=== PATIENT | female | born 1995 | race Caucasian/White ===

== ENCOUNTER 2016-10-02 16:48 | Inpatient (IN) | payer BC, MEDICAID ==
--- NOTE | 2016-10-02 17:23 | ED ---
General Adult HPI - General Chief complaint: Psychiatric Symptoms Stated complaint: Mental Health Time Seen by Provider: 10/02/16 17:10 Source: patient, RN notes reviewed Mode of arrival: ambulatory Limitations: no limitations - History of Present Illness Initial comments: Patient is a pleasant 21-year-old female presenting to the emergency Department with depression. Patient states she tried to overdose on plane Benadryl last night. Patient is unclear how many but believe she took somewhere between 5 and 20. Patient states The bottle still left. Patient is confident it was only Benadryl and no other medication was involved. No alcohol or street drug use. No homicidal thoughts. No hallucinations. No physical complaints. No history of previous suicide attempt. Patient has multiple stressors at this time. - Related Data Home Medications Medication Instructions Recorded Confirmed No Known Home Medications [No 08/08/15 10/02/16 Known Home Medications] Allergies Allergy/AdvReac Type Severity Reaction Status Date / Time sulfamethoxazole Allergy Rash/Hives Verified 10/02/16 17:52 [From Bactrim] trimethoprim [From Bactrim] Allergy Rash/Hives Verified 10/02/16 17:52 Review of Systems ROS Statement: Those systems with pertinent positive or pertinent negative responses have been documented in the HPI. ROS Other: All systems not noted in ROS Statement are negative. Constitutional: Denies: fever Eyes: Denies: eye pain ENT: Denies: ear pain Respiratory: Denies: cough Cardiovascular: Denies: chest pain Endocrine: Denies: fatigue Gastrointestinal: Denies: abdominal pain Genitourinary: Denies: dysuria Musculoskeletal: Denies: back pain Skin: Denies: rash Neurological: Denies: weakness Psychiatric: Reports: depression, suicidal thoughts. Denies: auditory hallucinations, visual hallucinations, homicidal thoughts Past Medical History Past Medical History: Diabetes Mellitus Additional Past Medical History / Comment(s): KIDNEY STONES, UTI'S History of Any Multi-Drug Resistant Organisms: MRSA Date of last positivie culture/infection: 2012 MDRO Source:: BUTTOCK/BREAST Past Surgical History: Cholecystectomy Past Anesthesia/Blood Transfusion Reactions: No Reported Reaction Past Psychological History: ADD/ADHD, Depression Smoking Status: Current every day smoker Past Alcohol Use History: Occasional Past Drug Use History: Marijuana - Past Family History Father Family Medical History: No Reported History General Exam Limitations: no limitations General appearance: alert, in no apparent distress Head exam: Present: atraumatic Eye exam: Present: normal appearance, PERRL ENT exam: Present: normal oropharynx Neck exam: Present: normal inspection Respiratory exam: Present: normal lung sounds bilaterally Cardiovascular Exam: Present: regular rate, normal rhythm GI/Abdominal exam: Present: soft. Absent: tenderness Extremities exam: Present: normal inspection Neurological exam: Present: alert Psychiatric exam: Present: depressed Skin exam: Present: normal color Course Vital Signs 10/02/16 10/02/16 16:51 18:42 Temperature 98.3 F 98.9 F Pulse Rate 70 88 Respiratory 20 16 Rate Blood Pressure 119/77 100/65 O2 Sat by Pulse 100 100 Oximetry Medical Decision Making - Medical Decision Making Patient was seen by mental health services, who will admit. - Lab Data Lab Results 10/02/16 Range/Units 17:25 Urine Opiates Screen Detected H (NotDetected) Ur Oxycodone Screen Not Detected (NotDetected) Urine Methadone Screen Not Detected (NotDetected) Ur Propoxyphene Screen Not Detected (NotDetected) Ur Barbiturates Screen Not Detected (NotDetected) U Tricyclic Antidepress Not Detected (NotDetected) Ur Phencyclidine Scrn Not Detected (NotDetected) Ur Amphetamines Screen Not Detected (NotDetected) U Methamphetamines Scrn Not Detected (NotDetected) U Benzodiazepines Scrn Not Detected (NotDetected) Urine Cocaine Screen Not Detected (NotDetected) U Marijuana (THC) Screen Not Detected (NotDetected) Disposition Clinical Impression: Depression, Suicidal ideation Disposition: TRANSFER TO PSYCH HOSP/UNIT Referrals: Lazaro Rainey MD [Primary Care Provider] - 1-2 days Decision Time: 21:36
[2016-10-02] MEDS ORDERED: MAGNESIUM HYDROXIDE 2,400 MG/10 ML CUP PO PRN (22:51)
[2016-10-02] MEDS ORDERED: ACETAMINOPHEN TAB 325 MG TAB PO PRN (22:51)
[2016-10-02] MEDS ORDERED: MAG HYDROX/AL HYDROX/SIMETH 30 ML CUP PO PRN (22:51)
[2016-10-02] MEDS ORDERED: LORazepam 0.5 MG TAB PO PRN (22:51)
[2016-10-02 23:14] VITALS: RESP 16
[2016-10-03 07:12] VITALS: BP 110/64; PULSE 77; TEMP 97.7
[2016-10-03 08:41] LABS: Basophils % (A) 0 %; CH 29.8; CHCM 34.5; Eosinophils # (A) 0.3 k/uL (0-0.7); Eosinophils % (A) 3 %; HCT 43.7 % (34.0-46.0); HDW 2.78; Luc # (Auto) 0.13; Luc % (Auto) 1; Lymphocytes # (A) 2.7 k/uL (1.0-4.8); Lymphocytes % (A) 26 %; MCH 29.8 pg (25.0-35.0); MCHC 34.2 g/dL (31.0-37.0); MCV 86.9 fL (80.0-100.0); Mean Platelet Volume 6.8; Monocytes # (A) 0.5 k/uL (0-1.0); Monocytes % (A) 5 %; Neutrophils # (A) 6.7 k/uL (1.3-7.7); Neutrophils % (A) 65 %; RBC 5.03 m/uL (3.80-5.40); RDW 13.1 % (11.5-15.5); WBC 10.3 k/uL (3.8-10.6); WBC (Perox) 10.92
[2016-10-03 09:59] LABS: ALT 43 U/L (9-52); AST 21 U/L (14-36); Alkaline Phosphatase 66 U/L (38-126); Anion Gap 15 mmol/L; Blood Urea Nitrogen 8 mg/dL (7-17); Carbon Dioxide 22 mmol/L (22-30); Chloride 109 mmol/L (98-107); Glucose 119 mg/dL (74-99); Non-African American GFR(MDRD) >60 (>60 ml/min/1.73 sqM); Potassium 4.3 mmol/L (3.5-5.1); Sodium 146 mmol/L (137-145); Total Bilirubin 0.5 mg/dL (0.2-1.3); Total Protein 7.9 g/dL (6.3-8.2)
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
--- NOTE | 2016-10-03 14:21 | P.DS ---
Providers Date of admission: 10/02/16 22:22 Expected date of discharge: 10/03/16 Attending physician: Chasidy Mg MD Consults: 10/02/16 22:53 Consult Physician Routine Consulting Provider: Deshawn Gonzalez Reason/Comments: Medical Management Do you want consulting provider notified?: Yes Primary care physician: Lazaro Rainey [facility] Course: Discharge Diagnoses: Adjustment disorder with depressed mood Suicide attempt with Benadryl overdose Reason for Admission: Patient is a 21-year-old female who was admitted after taking an overdose of Benadryl on the day prior to admission due to becoming angry with a recent breakup with her boyfriend due to his dating her best friend. She discovered that he was dating her best friend the day prior to her overdose attempt. Patient told her mother what had occurred and she was brought to the emergency room and admitted. Hospital Course: Patient was admitted and placed on precautions, she is scheduled for group and activity therapy and had routine laboratory examination. Patient was not begun on any medications and was attending groups. She stated that her overdose attempt was stupid due to the fact that she has a 2-year-old daughter to care for and stated that she really didn't want to was upset and angry about her boyfriend dating her best friend. She reported that she is sleeping and eating well and was not able to endorse any current depressive symptomatology, psychotic symptomatology and also denied any current suicidal ideation. Patient was encouraged to return to outpatient counseling and she was agreeable with this and was eager for discharge today. Discharge Mental Status:Appearance/Attitude: Patient was neatly and appropriately dressed and she was cooperative during the interview. Behavior: She exhibited no psychomotor retardation or agitation. Speech/Language: She was spontaneous and of normal volume and rhythm and was coherent. Thought Process: Patient was goal-directed and there is no evidence of any circumstantial or tangential thought. Thought Content: Patient denied any auditory or visual hallucinations and no delusions or paranoid ideation were elicited. Patient remained angry and upset that her boyfriend cheated on her, has done so in the past and that she has gotten back together with him in the past after these episodes and separation. Suicidal/Homicidal Ideation: Denies any current suicidal or homicidal ideation and states that she wants to live to care for PCD-8-uiup-old daughter. Sensorium/Cognition: Is alert and oriented to person, place, and time and her memory was grossly intact. Mood/Affect: Patient's mood was euthymic and her affect is appropriate. Insight/Judgement: Patient's judgment and insight are intact. Laboratory Last Values WBC 10.3 k/uL (3.8-10.6) 10/03/16 08:19 RBC 5.03 m/uL (3.80-5.40) 10/03/16 08:19 Hgb 15.0 gm/dL (11.4-16.0) 10/03/16 08:19 Hct 43.7 % (34.0-46.0) 10/03/16 08:19 MCV 86.9 fL (80.0-100.0) 10/03/16 08:19 MCH 29.8 pg (25.0-35.0) 10/03/16 08:19 MCHC 34.2 g/dL (31.0-37.0) 10/03/16 08:19 RDW 13.1 % (11.5-15.5) 10/03/16 08:19 Plt Count 315 k/uL (150-450) 10/03/16 08:19 Neutrophils % 65 % 10/03/16 08:19 Lymphocytes % 26 % 10/03/16 08:19 Monocytes % 5 % 10/03/16 08:19 Eosinophils % 3 % 10/03/16 08:19 Basophils % 0 % 10/03/16 08:19 Neutrophils # 6.7 k/uL (1.3-7.7) 10/03/16 08:19 Lymphocytes # 2.7 k/uL (1.0-4.8) 10/03/16 08:19 Monocytes # 0.5 k/uL (0-1.0) 10/03/16 08:19 Eosinophils # 0.3 k/uL (0-0.7) 10/03/16 08:19 Basophils # 0.0 k/uL (0-0.2) 10/03/16 08:19 Sodium 146 mmol/L (137-145) H 10/03/16 08:19 Potassium 4.3 mmol/L (3.5-5.1) 10/03/16 08:19 Chloride 109 mmol/L (98-107) H 10/03/16 08:19 Carbon Dioxide 22 mmol/L (22-30) 10/03/16 08:19 Anion Gap 15 mmol/L 10/03/16 08:19 BUN 8 mg/dL (7-17) 10/03/16 08:19 Creatinine 0.60 mg/dL (0.52-1.04) 10/03/16 08:19 Est GFR (MDRD) Af Amer >60 (>60 ml/min/1.73 sqM) 10/03/16 08:19 Est GFR (MDRD) Non-Af >60 (>60 ml/min/1.73 sqM) 10/03/16 08:19 Glucose 119 mg/dL (74-99) H 10/03/16 08:19 Calcium 10.0 mg/dL (8.4-10.2) 10/03/16 08:19 Total Bilirubin 0.5 mg/dL (0.2-1.3) 10/03/16 08:19 AST 21 U/L (14-36) 10/03/16 08:19 ALT 43 U/L (9-52) 10/03/16 08:19 Alkaline Phosphatase 66 U/L (38-126) 10/03/16 08:19 Total Protein 7.9 g/dL (6.3-8.2) 10/03/16 08:19 Albumin 5.1 g/dL (3.5-5.0) H 10/03/16 08:19 TSH 1.550 mIU/L (0.465-4.680) 10/03/16 08:19 Urine HCG, Qual Not Detected (Not Detectd) 10/02/16 17:25 Urine Opiates Screen Detected (NotDetected) H 10/02/16 17:25 Ur Oxycodone Screen Not Detected (NotDetected) 10/02/16 17:25 Urine Methadone Screen Not Detected (NotDetected) 10/02/16 17:25 Ur Propoxyphene Screen Not Detected (NotDetected) 10/02/16 17:25 Ur Barbiturates Screen Not Detected (NotDetected) 10/02/16 17:25 U Tricyclic Antidepress Not Detected (NotDetected) 10/02/16 17:25 Ur Phencyclidine Scrn Not Detected (NotDetected) 10/02/16 17:25 Ur Amphetamines Screen Not Detected (NotDetected) 10/02/16 17:25 U Methamphetamines Scrn Not Detected (NotDetected) 10/02/16 17:25 U Benzodiazepines Scrn Not Detected (NotDetected) 10/02/16 17:25 Urine Cocaine Screen Not Detected (NotDetected) 10/02/16 17:25 U Marijuana (THC) Screen Not Detected (NotDetected) 10/02/16 17:25 Allergies sulfamethoxazole [From Bactrim] Allergy (Verified 10/02/16 23:17) Rash/Hives NAUSEA/VOMITING trimethoprim [From Bactrim] Allergy (Verified 10/02/16 23:17) Rash/Hives NAUSEA/VOMITING mosquitos Allergy (Uncoded 10/02/16 23:18) Rash/Hives Risk Assessment: Patient's risk for suicidal behavior in the future is low, she has a supportive family, is willing to enter counseling and is engaged with HER- 2-year-old daughter. Discharge Plan: Patient will be discharged to return to live with her mother and stepfather and her 2-year-old daughter, she was not given any psychotropic medication on discharge nor during admission. Patient will return to work at the [employer]. She was encouraged to consider smoking cessation. She will follow up in outpatient counseling. 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 Patient Condition at Discharge: Stable Plan - Discharge Summary New Discharge Prescriptions: No Action No Known Home Medications [No Known Home Medications] Discharge Medication List No Known Home Medications [No Known Home Medications] 08/08/15 [History] Follow up Appointment(s)/Referral(s): Jatinder Carrasco [Outside] - 10/06/16 9:00 am ([facility] (subject to change ) facility will notify ) Lazaro Rainey MD [Primary Care Provider] - 1-2 days Activity/Diet/Wound Care/Special Instructions: Patient to schedule appointment with [facility] to restart Control Discharge Disposition: HOME SELF-CARE
--- NOTE | 2016-10-04 10:30 | P.MDCNMH ---
History of Present Illness H&P Date: 10/03/16 Chief Complaint: Medical management This is a 21-year-old female patient of Dr. Rainey with past medical history of diabetes mellitus on diet control, kidney stones, urinary tract infections, ADHD, depression, tobacco use and dependence. Patient states that she had her boyfriend and broken up and she was depressed and taking Benadryl 10 -15 tablets 4 days ago. She came into [facility] emergency [facility]. Opiates were found in her drug screen she denies any use of opiates. Patient has been admitted to the mental health unit and has been seen by psychiatrist with plan to set up outpatient counselor. Patient denies any medical concerns at this time and she also denies having any suicidal thoughts at this time. Review of Systems All systems: negative Constitutional: Denies chills, Denies fever Eyes: denies blurred vision, denies pain Ears, nose, mouth and throat: Denies headache, Denies sore throat Cardiovascular: Denies chest pain, Denies shortness of breath Respiratory: Denies cough Gastrointestinal: Denies abdominal pain, Denies diarrhea, Denies nausea, Denies vomiting Genitourinary: Denies dysuria, Denies hematuria Musculoskeletal: Denies myalgias Integumentary: Denies pruritus, Denies rash Neurological: Denies numbness, Denies weakness Psychiatric: Denies anxiety, Denies depression Endocrine: Denies fatigue, Denies weight change Past Medical History Past Medical History: Diabetes Mellitus Additional Past Medical History / Comment(s): KIDNEY STONES, UTI'S History of Any Multi-Drug Resistant Organisms: MRSA Date of last positivie culture/infection: 2012 MDRO Source:: BUTTOCK/BREAST Past Surgical History: Cholecystectomy, Hernia Repair Additional Past Surgical History / Comment(s): Left inguinal hernia repair Past Anesthesia/Blood Transfusion Reactions: No Reported Reaction Past Psychological History: ADD/ADHD, Depression Smoking Status: Current every day smoker Past Alcohol Use History: Occasional Additional Past Alcohol Use History / Comment(s): Patient is a smoker of one pack per day since she was 15 years of age. She states she drinks alcohol occasionally. She has used marijuana in the past but denies any use at this time. Past Drug Use History: Marijuana - Past Family History Father Family Medical History: No Reported History Additional Family Medical History / Comment(s): Father is alive at age 46 with history of celiac disease Mother Additional Family Medical History / Comment(s): Mother is alive at age 41 with no major medical problems. Patient has 2 half-brothers and one half-sister with no major medical problems. Medications and Allergies Home Medications Medication Instructions Recorded Confirmed Type No Known Home Medications [No 08/08/15 10/02/16 History Known Home Medications] Allergies Allergy/AdvReac Type Severity Reaction Status Date / Time sulfamethoxazole Allergy Rash/Hives Verified 10/02/16 23:17 [From Bactrim] trimethoprim [From Bactrim] Allergy Rash/Hives Verified 10/02/16 23:17 mosquitos Allergy Rash/Hives Uncoded 10/02/16 23:18 Physical Exam Vitals: Vital Signs Temp Pulse Pulse Resp BP BP Pulse Ox 10/03/16 07:11 97.7 F 77 16 110/64 10/02/16 23:13 98.5 F 71 16 115/66 99 10/02/16 22:42 98 F 87 20 110/68 98 10/02/16 18:42 98.9 F 88 16 100/65 100 10/02/16 16:51 98.3 F 70 20 119/77 100 Intake and Output 10/02/16 10/03/16 10/03/16 22:59 06:59 14:59 Other: Weight 81.647 kg 82.1 kg Gen: This is a 21-year-old female. She is very cooperative, appropriate and appears to be in no acute distress. HEENT: Head is atraumatic, normocephalic. Pupils equal, round. Sclerae is anicteric. NECK: Supple. No JVD. No lymphadenopathy. No thyromegaly. LUNGS: Clear to auscultation. No wheezes or rhonchi. No intercostal retractions. HEART: Regular rate and rhythm. No murmur. ABDOMEN: Soft. Bowel sounds are present. No masses. No tenderness. EXTREMITIES: No pedal edema. No calf tenderness. NEUROLOGICAL: Patient is awake, alert and oriented x3. Cranial nerves 2 through 12 are grossly intact. Cranial Nerve Examination - Cranial Nerves Cranial Nerve II- Optic: Intact Cranial Nerve III- Oculomotor: Intact Cranial Nerve IV- Trochlear: Intact Cranial Nerve V- Trigeminal: Intact Cranial Nerve - Abducens: Intact Cranial Nerve VII- Facial: Intact Cranial Nerve VIII- Auditory: Intact Cranial Nerve IX- Glossopharyngeal: Intact Cranial Nerve X- Vagus: Intact Cranial Nerve XI- Accessory: Intact Cranial Nerve XII- Hypoglossal: Intact Results CBC & Chem 7: 10/03/16 08:19 10/03/16 08:19 Labs: Abnormal Lab Results - Last 24 Hours (Table) 10/02/16 10/03/16 Range/Units 17:25 08:19 Sodium 146 H (137-145) mmol/L Chloride 109 H (98-107) mmol/L Glucose 119 H (74-99) mg/dL Albumin 5.1 H (3.5-5.0) g/dL Urine Opiates Screen Detected H (NotDetected) Assessment and Plan Plan: 1. Depression recurrent. Patient admitted to the mental health unit. Continue current plan per psychiatrist. 2. Tobacco use and dependence. Continue nicotine patch. 3. History of kidney stones and urinary tract infections, stable. 4. History of diabetes but not on medication, stable. Impression and plan of care have been directed as dictated by the signing physician. Lolly Curtis nurse practitioner acting as scribe for signing physician.
== END 2016-10-03 16:44 | disposition home or self-care (01) | DRG 881 ==
LOC: EC 16:48 → 3MHU 22:22
PROVIDERS: ADMIT Psychiatry & Neurology Psychiatry; ATTEND Psychiatry & Neurology Psychiatry
DX: F43.21 Adjustment disorder with depressed mood (principal); E11.9 Type 2 diabetes mellitus without complications; F31.9 Bipolar disorder, unspecified; T45.0X2A Poisoning by antiallergic and antiemetic drugs, intentional self-harm, initial encounter; F17.200 Nicotine dependence, unspecified, uncomplicated; F90.9 Attention-deficit hyperactivity disorder, unspecified type; Z87.442 Personal history of urinary calculi; Z87.440 Personal history of urinary (tract) infections; Z90.49 Acquired absence of other specified parts of digestive tract; Z88.1 Allergy status to other antibiotic agents; Z88.2 Allergy status to sulfonamides; Y92.009 Unspecified place in unspecified non-institutional (private) residence as the place of occurrence of the external cause
CPT/HCPCS: 80053; 80306; 81025; 82075; 84443; 85025; 99285

== ENCOUNTER 2017-01-07 04:24 | Emergency (ER) | payer BC, OTHER ==
[2017-01-07 04:31] VITALS: BP 145/83; PULSE 84; RESP 16; TEMP 98.6
[2017-01-07] MEDS ORDERED: predniSONE 50 MG TAB PO STA (04:54)
--- NOTE | 2017-01-07 04:54 | ED ---
Skin/Abscess/FB HPI - General Chief complaint: Skin/Abscess/Foreign Body Stated complaint: Rash Time Seen by Provider: 01/07/17 04:34 Source: patient Mode of arrival: ambulatory Limitations: no limitations - History of Present Illness Initial comments: This patient is 21-year-old woman who presents to be evaluated for a rash. She states that 2 days ago she noticed fine bumps on her bilateral feet and hands. She states that over the following day the increase in number and were itching. She states that she has been scratching. She has taken Benadryl which helped a little bit with the itching. She denies any associated symptoms. No fever or chills, no upper respiratory symptoms. She has not noticed any mucous membrane involvement. MD complaint: rash Onset/Timin -: days(s) Tetanus Up to Date: yes Location: L hand, R hand, LLE, RLE Severity: moderate Quality: other (Itching) Consistency: constant Improves with: none Worsens with: none Context: none Associated symptoms: denies other symptoms Treatments Prior to Arrival: Benadryl - Related Data Previous Rx's Medication Instructions Recorded Triamcinolone 0.5% Cream [Kenalog 1 applic TOPICAL TID #15 gm 01/07/17 0.5% Cream] Allergies Allergy/AdvReac Type Severity Reaction Status Date / Time sulfamethoxazole Allergy Rash/Hives Verified 01/07/17 04:31 [From Bactrim] trimethoprim [From Bactrim] Allergy Rash/Hives Verified 01/07/17 04:31 mosquitos Allergy Rash/Hives Uncoded 01/07/17 04:31 Review of Systems ROS Statement: Those systems with pertinent positive or pertinent negative responses have been documented in the HPI. ROS Other: All systems not noted in ROS Statement are negative. Constitutional: Denies: fever, chills Eyes: Denies: eye pain, eye discharge ENT: Denies: throat pain, congestion Respiratory: Denies: cough Gastrointestinal: Denies: abdominal pain, nausea, vomiting Skin: Reports: rash Neurological: Denies: headache Past Medical History Past Medical History: Diabetes Mellitus Additional Past Medical History / Comment(s): KIDNEY STONES, UTI'S History of Any Multi-Drug Resistant Organisms: MRSA Date of last positivie culture/infection: 2012 MDRO Source:: BUTTOCK/BREAST Past Surgical History: Cholecystectomy, Hernia Repair Additional Past Surgical History / Comment(s): Left inguinal hernia repair Past Anesthesia/Blood Transfusion Reactions: No Reported Reaction Past Psychological History: ADD/ADHD, Depression Smoking Status: Current every day smoker Past Alcohol Use History: Occasional Past Drug Use History: Marijuana - Past Family History Mother Additional Family Medical History / Comment(s): Mother is alive at age 41 with no major medical problems. Patient has 2 half-brothers and one half-sister with no major medical problems. Father Family Medical History: No Reported History Additional Family Medical History / Comment(s): Father is alive at age 46 with history of celiac disease General Exam Limitations: no limitations General appearance: alert, in no apparent distress Head exam: Present: atraumatic, normocephalic Eye exam: Present: normal appearance. Absent: scleral icterus, conjunctival injection ENT exam: Present: normal oropharynx, mucous membranes moist Respiratory exam: Present: normal lung sounds bilaterally. Absent: respiratory distress, wheezes, rales, rhonchi, stridor Cardiovascular Exam: Present: regular rate, normal rhythm, normal heart sounds. Absent: systolic murmur, diastolic murmur, rubs, gallop Skin exam: Present: warm, dry, intact, normal color, rash (There is a papular rash involving the dorsum of the hands and the wrists bilaterally. There is more involvement of the dorsum of the feet and the ankles bilaterally. There are also some excoriations. The rash is consistent with a contact dermatitis. No petechial or purpura oral lesions.). Absent: erythema, urticaria, vesicles, petechiae, pallor, mottled Course Vital Signs 01/07/17 04:25 Temperature 98.6 F Pulse Rate 84 Respiratory 16 Rate Blood Pressure 145/83 O2 Sat by Pulse 99 Oximetry Disposition Clinical Impression: Contact dermatitis Disposition: HOME SELF-CARE Condition: Good Instructions: Contact Dermatitis (ED) Prescriptions: Triamcinolone 0.5% Cream [Kenalog 0.5% Cream] 1 applic TOPICAL TID #15 gm Referrals: Lazaro Rainey MD [Primary Care Provider] - 1-2 days
== END 2017-01-07 05:03 | disposition home or self-care (01) ==
LOC: EC 04:24
DX: L25.9 Unspecified contact dermatitis, unspecified cause (principal); F17.200 Nicotine dependence, unspecified, uncomplicated; Z86.14 Personal history of Methicillin resistant Staphylococcus aureus infection; Z88.2 Allergy status to sulfonamides; Z91.09 Other allergy status, other than to drugs and biological substances
CPT/HCPCS: 99282 ×2; J7512

== ENCOUNTER 2017-10-07 01:15 | Emergency (ER) | payer BC, OTHER ==
[2017-10-07 01:24] VITALS: TEMP 97.2
[2017-10-07] MEDS ORDERED: SODIUM CHLORIDE 0.9% 1,000 ML IV STA (01:38)
--- NOTE | 2017-10-07 01:50 | ED ---
Abdominal Pain HPI - General Chief Complaint: Abdominal Pain Stated Complaint: abd pain Time Seen by Provider: 10/07/17 01:31 Source: patient, family, RN notes reviewed Mode of arrival: ambulatory Limitations: no limitations - History of Present Illness Initial Comments: 22-year-old female presents emergency Department chief complaint of abdominal pain, sore throat. Patient states that she's had some upper respiratory symptoms over the last few days states that she was seen at [facility] and was told she had an upper respiratory infection to take [id number] medications. She has been doing that but states that she still has a sore throat having acid is improved. She states it's very painful to swallow at times. Patient states she has no shortness breath minimal cough. Patient reports no known fever but states that she's had hot and cold flashes. Patient states that she did have abdominal pain when she was seen in the they told her that was nothing and discharge her. Patient states pain is worsened as her right lower quadrant. She's had a prior cholecystectomy and hernia repair. Patient states that she is not . Denies any dysuria or hematuria. - Related Data Previous Rx's Medication Instructions Recorded Amoxicillin/Potassium Clav 1 tab PO Q12HR #20 tab 10/07/17 [Augmentin 875-125 Tablet] Allergies Allergy/AdvReac Type Severity Reaction Status Date / Time sulfamethoxazole Allergy Rash/Hives Verified 10/07/17 01:24 [From Bactrim] trimethoprim [From Bactrim] Allergy Rash/Hives Verified 10/07/17 01:24 mosquitos Allergy Rash/Hives Uncoded 10/07/17 01:24 Review of Systems ROS Statement: Those systems with pertinent positive or pertinent negative responses have been documented in the HPI. ROS Other: All systems not noted in ROS Statement are negative. Past Medical History Past Medical History: Diabetes Mellitus Additional Past Medical History / Comment(s): KIDNEY STONES, UTI'S History of Any Multi-Drug Resistant Organisms: MRSA Date of last positivie culture/infection: 2012 MDRO Source:: BUTTOCK/BREAST Past Surgical History: Cholecystectomy, Hernia Repair Additional Past Surgical History / Comment(s): Left inguinal hernia repair Past Anesthesia/Blood Transfusion Reactions: No Reported Reaction Past Psychological History: ADD/ADHD, Depression Smoking Status: Current every day smoker Past Alcohol Use History: Occasional Past Drug Use History: Marijuana - Past Family History Mother Additional Family Medical History / Comment(s): Mother is alive at age 41 with no major medical problems. Patient has 2 half-brothers and one half-sister with no major medical problems. Father Family Medical History: No Reported History Additional Family Medical History / Comment(s): Father is alive at age 46 with history of celiac disease General Exam Limitations: no limitations General appearance: alert, in no apparent distress Eye exam: Present: normal appearance, PERRL, EOMI. Absent: scleral icterus, conjunctival injection, periorbital swelling ENT exam: Present: mucous membranes moist, TM's normal bilaterally, normal external ear exam. Absent: normal oropharynx (Mild erythema of the tonsillar region mild edema swan secretions well) Neck exam: Present: normal inspection, full ROM. Absent: tenderness, meningismus, lymphadenopathy Respiratory exam: Present: normal lung sounds bilaterally. Absent: respiratory distress, wheezes, rales, rhonchi, stridor Cardiovascular Exam: Present: regular rate, normal rhythm, normal heart sounds. Absent: systolic murmur, diastolic murmur, rubs, gallop, clicks GI/Abdominal exam: Present: soft, tenderness (Moderate right lower quadrant), normal bowel sounds. Absent: distended, guarding, rebound, rigid Back exam: Absent: CVA tenderness (R), CVA tenderness (L) Skin exam: Present: warm, dry, intact, normal color. Absent: rash Course Vital Signs 10/07/17 01:21 Temperature 97.2 F L Pulse Rate 87 Respiratory 20 Rate Blood Pressure 125/71 O2 Sat by Pulse 99 Oximetry Medical Decision Making - Medical Decision Making 22-year-old female presented from chief complaint of sore throat abdominal pain. Patient lab work CT does show normal appendix there is some free fluid possible concern for ovarian cyst rupture for pain. Patient we treated for acute pharyngitis rapid strep is negative though culture is pending. Patient was placed on Augmentin. Return parameters were discussed. - Lab Data Result diagrams: 10/07/17 01:55 10/07/17 01:55 Lab Results 10/07/17 10/07/17 10/07/17 Range/Units 01:55 01:55 01:55 WBC 10.7 H (3.8-10.6) k/uL RBC 5.09 (3.80-5.40) m/uL Hgb 14.8 (11.4-16.0) gm/dL Hct 43.3 (34.0-46.0) % MCV 85.1 (80.0-100.0) fL MCH 29.1 (25.0-35.0) pg MCHC 34.2 (31.0-37.0) g/dL RDW 13.3 (11.5-15.5) % Plt Count 276 (150-450) k/uL Neutrophils % 59 % Lymphocytes % 27 % Monocytes % 6 % Eosinophils % 5 % Basophils % 0 % Neutrophils # 6.3 (1.3-7.7) k/uL Lymphocytes # 2.9 (1.0-4.8) k/uL Monocytes # 0.7 (0-1.0) k/uL Eosinophils # 0.5 (0-0.7) k/uL Basophils # 0.0 (0-0.2) k/uL Sodium 143 (137-145) mmol/L Potassium 4.2 (3.5-5.1) mmol/L Chloride 107 (98-107) mmol/L Carbon Dioxide 23 (22-30) mmol/L Anion Gap 13 mmol/L BUN 9 (7-17) mg/dL Creatinine 0.50 L (0.52-1.04) mg/dL Est GFR (CKD-EPI)AfAm >90 (>60 ml/min/1.73 sqM) Est GFR (CKD-EPI)NonAf >90 (>60 ml/min/1.73 sqM) Glucose 112 H (74-99) mg/dL Calcium 10.1 (8.4-10.2) mg/dL Total Bilirubin 0.4 (0.2-1.3) mg/dL AST 40 H (14-36) U/L ALT 62 H (9-52) U/L Alkaline Phosphatase 50 (38-126) U/L Total Protein 7.6 (6.3-8.2) g/dL Albumin 4.7 (3.5-5.0) g/dL Amylase 45 (30-110) U/L Lipase 78 (23-300) U/L Urine Color Urine Appearance (Clear) Urine pH (5.0-8.0) Ur Specific [place] (1.001-1.035) Urine Protein (Negative) Urine Glucose (UA) (Negative) Urine Ketones (Negative) Urine Blood (Negative) Urine Nitrite (Negative) Urine Bilirubin (Negative) Urine Urobilinogen (<2.0) mg/dL Ur Leukocyte Esterase (Negative) Urine RBC (0-5) /hpf Urine WBC (0-5) /hpf Ur Squamous Epith Cells (0-4) /hpf Urine Mucus (None) /hpf Urine HCG, Qual Not Detected (Not Detectd) Heterophile Antibody (Negative) Group A Strep Rapid (Negative) 10/07/17 10/07/17 10/07/17 Range/Units 01:55 01:55 01:55 WBC (3.8-10.6) k/uL RBC (3.80-5.40) m/uL Hgb (11.4-16.0) gm/dL Hct (34.0-46.0) % MCV (80.0-100.0) fL MCH (25.0-35.0) pg MCHC (31.0-37.0) g/dL RDW (11.5-15.5) % Plt Count (150-450) k/uL Neutrophils % % Lymphocytes % % Monocytes % % Eosinophils % % Basophils % % Neutrophils # (1.3-7.7) k/uL Lymphocytes # (1.0-4.8) k/uL Monocytes # (0-1.0) k/uL Eosinophils # (0-0.7) k/uL Basophils # (0-0.2) k/uL Sodium (137-145) mmol/L Potassium (3.5-5.1) mmol/L Chloride (98-107) mmol/L Carbon Dioxide (22-30) mmol/L Anion Gap mmol/L BUN (7-17) mg/dL Creatinine (0.52-1.04) mg/dL Est GFR (CKD-EPI)AfAm (>60 ml/min/1.73 sqM) Est GFR (CKD-EPI)NonAf (>60 ml/min/1.73 sqM) Glucose (74-99) mg/dL Calcium (8.4-10.2) mg/dL Total Bilirubin (0.2-1.3) mg/dL AST (14-36) U/L ALT (9-52) U/L Alkaline Phosphatase (38-126) U/L Total Protein (6.3-8.2) g/dL Albumin (3.5-5.0) g/dL Amylase (30-110) U/L Lipase (23-300) U/L Urine Color Light Yellow Urine Appearance Cloudy H (Clear) Urine pH 7.0 (5.0-8.0) Ur Specific [place] 1.008 (1.001-1.035) Urine Protein Negative (Negative) Urine Glucose (UA) Negative (Negative) Urine Ketones Negative (Negative) Urine Blood Negative (Negative) Urine Nitrite Negative (Negative) Urine Bilirubin Negative (Negative) Urine Urobilinogen <2.0 (<2.0) mg/dL Ur Leukocyte Esterase Negative (Negative) Urine RBC <1 (0-5) /hpf Urine WBC 1 (0-5) /hpf Ur Squamous Epith Cells 10 H (0-4) /hpf Urine Mucus Rare H (None) /hpf Urine HCG, Qual (Not Detectd) Heterophile Antibody Negative (Negative) Group A Strep Rapid Negative (Negative) Disposition Clinical Impression: Acute pharyngitis, Abdominal pain Disposition: HOME SELF-CARE Condition: Stable Instructions: Abdominal Pain (ED) Additional Instructions: Please return to the Emergency Department if symptoms worsen or any other concerns. Prescriptions: Amoxicillin/Potassium Clav [Augmentin 875-125 Tablet] 1 tab PO Q12HR #20 tab Is patient prescribed a controlled substance at d/c from ED?: No Referrals: Lazaro Rainey MD [Primary Care Provider] - 1-2 days Time of Disposition: 03:05
[2017-10-07 02:09] LABS: Basophils % (A) 0 %; Eosinophils # (A) 0.5 k/uL (0-0.7); Eosinophils % (A) 5 %; HCT 43.3 % (34.0-46.0); HGB 14.8 gm/dL (11.4-16.0); Lymphocytes # (A) 2.9 k/uL (1.0-4.8); Lymphocytes % (A) 27 %; MCH 29.1 pg (25.0-35.0); MCHC 34.2 g/dL (31.0-37.0); MCV 85.1 fL (80.0-100.0); Mean Platelet Volume 7.1; Monocytes # (A) 0.7 k/uL (0-1.0); Monocytes % (A) 6 %; Neutrophils # (A) 6.3 k/uL (1.3-7.7); Neutrophils % (A) 59 %; Platelet Count 276 k/uL (150-450); RBC 5.09 m/uL (3.80-5.40); RDW 13.3 % (11.5-15.5); WBC 10.7 k/uL (3.8-10.6)
[2017-10-07 02:11] LABS: Appearance,Urine Cloudy (Clear); Bilirubin,Urine Negative (Negative); Blood,Urine Negative (Negative); Color,Urine Light Yellow; Glucose,Urine (UA) Negative (Negative); Ketones,Urine Negative (Negative); Leukocyte Esterase,Urine Negative (Negative); Mucus,Urine Rare /hpf; Nitrite,Urine Negative (Negative); Protein,Urine Negative (Negative); RBC,Urine <1 /hpf (0-5); Specific Gravity,Urine 1.008 (1.001-1.035); Squamous Epithelial Cell,Urine 10 /hpf (0-4); Urobilinogen,Urine <2.0 mg/dL (<2.0); WBC,Urine 1 /hpf (0-5)
[2017-10-07 02:22] LABS: ALT 62 U/L (9-52); AST 40 U/L (14-36); Albumin 4.7 g/dL (3.5-5.0); Alkaline Phosphatase 50 U/L (38-126); Amylase 45 U/L (30-110); Anion Gap 13 mmol/L; Blood Urea Nitrogen 9 mg/dL (7-17); Calcium 10.1 mg/dL (8.4-10.2); Carbon Dioxide 23 mmol/L (22-30); Chloride 107 mmol/L (98-107); Glucose 112 mg/dL (74-99); Lipase 78 U/L (23-300); Potassium 4.2 mmol/L (3.5-5.1); Sodium 143 mmol/L (137-145); Total Bilirubin 0.4 mg/dL (0.2-1.3); Total Protein 7.6 g/dL (6.3-8.2)
--- NOTE | 2017-10-07 02:50 | CT ---
EXAMINATION TYPE: CT abdomen pelvis w con DATE OF EXAM: 10/07/2017 COMPARISON: None HISTORY: RLQ abd pain CT DLP: 948.50 mGycm Automated exposure control for dose reduction was used. TECHNIQUE: Helical acquisition of images was performed from the lung bases through the pelvis. CONTRAST: Performed without Oral Contrast and with IV Contrast, patient injected with 100 mL of Isovue 300. FINDINGS: There is some groundglass interstitial infiltrate at the lung bases. Heart size is normal. There is n o pleural effusion. Liver spleen pancreas appear normal. Bile ducts are not dilated. There are clips from cholecystectomy. There is no adrenal mass. Kidneys show satisfactory contrast opacification. There is no hydronephrosi s. There is no retroperitoneal adenopathy. There is no ascites. Appendix appears normal. There is no intestinal wall thickening. There is small amount of free fluid in the cul-de-sac. Uterus is antevert ed. There is no pelvic mass. Bladder distends smoothly. There is no evidence of a bony destructive pr ocess. There is no sign of free air. There is no evidence of a bowel obstruction. IMPRESSION: NORMAL APPENDIX. NO RENAL STONE OR OBSTRUCTION. SMALL AMOUNT OF FREE FLUID IN THE CUL-DE-SAC.
[2017-10-07 03:48] VITALS: BP 122/56; PULSE 65; RESP 16
== END 2017-10-07 03:48 | disposition home or self-care (01) ==
LOC: EC 01:15
DX: J02.9 Acute pharyngitis, unspecified (principal); R10.31 Right lower quadrant pain; F17.200 Nicotine dependence, unspecified, uncomplicated; Z87.442 Personal history of urinary calculi; Z86.14 Personal history of Methicillin resistant Staphylococcus aureus infection; Z90.49 Acquired absence of other specified parts of digestive tract; Z98.890 Other specified postprocedural states; Z88.2 Allergy status to sulfonamides; Z91.038 Other insect allergy status
CPT/HCPCS: 36415; 80053; 82150; 83690; 85025; 86308; 81001; 81025; 87081; 87430; 74177; 99284; 96360; Q9967

== ENCOUNTER 2017-12-05 00:34 | Emergency (ER) | payer BC, OTHER ==
[2017-12-05 00:40] VITALS: BP 137/83; PULSE 117; TEMP 98.5
[2017-12-05] MEDS ORDERED: AMOXICILLIN 500MG STARTER PACK 3 CAP BTL PO STA (00:50)
--- NOTE | 2017-12-05 00:52 | ED ---
ENT HPI - General Source: patient, RN notes reviewed Mode of arrival: ambulatory Limitations: no limitations <Nicolas Garvey - Last Filed: 12/05/17 00:50> <Rama Hdez - Last Filed: 12/05/17 23:02> - General Chief complaint: ENT Stated complaint: Ear pain Time Seen by Provider: 12/05/17 00:45 - History of Present Illness Initial comments: 22-year-old female presented to the ER for right ear pain. She states she has been congested last few days progressively getting worse. She states that shehas seasonal ALLERGIES has been using Flonase, Claritin, Sudafed, Mucinex. Patient states that she developed severe pain yesterday morning has progressed. Patient denies any dizziness, headache, neck pain or neck stiffness. She has no shortness of breath no chest pain. (Nicolas Garvey) - Related Data Previous Rx's Medication Instructions Recorded Amoxicillin/Potassium Clav 1 tab PO Q12HR #20 tab 10/07/17 [Augmentin 875-125 Tablet] Amoxicillin 875 mg PO Q12HR #20 tablet 12/05/17 Allergies Allergy/AdvReac Type Severity Reaction Status Date / Time sulfamethoxazole Allergy Rash/Hives Verified 12/05/17 00:40 [From Bactrim] trimethoprim [From Bactrim] Allergy Rash/Hives Verified 12/05/17 00:40 mosquitos Allergy Rash/Hives Uncoded 12/05/17 00:40 Review of Systems ROS Other: All systems not noted in ROS Statement are negative. <Nicolas Garvey - Last Filed: 12/05/17 00:50> ROS Other: All systems not noted in ROS Statement are negative. <Rama Hdez - Last Filed: 12/05/17 23:02> ROS Statement: Those systems with pertinent positive or pertinent negative responses have been documented in the HPI. Past Medical History Past Medical History: Diabetes Mellitus Additional Past Medical History / Comment(s): KIDNEY STONES, UTI'S History of Any Multi-Drug Resistant Organisms: MRSA Date of last positivie culture/infection: 2012 MDRO Source:: BUTTOCK/BREAST Past Surgical History: Cholecystectomy, Hernia Repair Additional Past Surgical History / Comment(s): Left inguinal hernia repair Past Anesthesia/Blood Transfusion Reactions: No Reported Reaction Past Psychological History: ADD/ADHD, Depression Smoking Status: Current every day smoker Past Alcohol Use History: Occasional Past Drug Use History: Marijuana - Past Family History Mother Additional Family Medical History / Comment(s): Mother is alive at age 41 with no major medical problems. Patient has 2 half-brothers and one half-sister with no major medical problems. Father Family Medical History: No Reported History Additional Family Medical History / Comment(s): Father is alive at age 46 with history of celiac disease <Nicolas Garvey - Last Filed: 12/05/17 00:50> General Exam Limitations: no limitations General appearance: alert, in no apparent distress Eye exam: Present: normal appearance, PERRL, EOMI. Absent: scleral icterus, conjunctival injection, periorbital swelling ENT exam: Present: normal oropharynx, mucous membranes moist, normal external ear exam. Absent: TM's normal bilaterally (Right TM erythematous, fluid level noted) Neck exam: Present: normal inspection, full ROM. Absent: tenderness, meningismus, lymphadenopathy Respiratory exam: Present: normal lung sounds bilaterally. Absent: respiratory distress, wheezes, rales, rhonchi, stridor Cardiovascular Exam: Present: normal rhythm, tachycardia, normal heart sounds. Absent: systolic murmur, diastolic murmur, rubs, gallop, clicks <Nicolas Garvey - Last Filed: 12/05/17 00:50> Vital Signs 12/05/17 12/05/17 00:37 01:01 Temperature 98.5 F Pulse Rate 117 H Respiratory 17 16 Rate Blood Pressure 137/83 O2 Sat by Pulse 98 Oximetry Medical Decision Making <Nicolas Garvey - Last Filed: 12/05/17 00:50> <Rama Hdez - Last Filed: 12/05/17 23:02> - Medical Decision Making 22-year-old presented for right ear pain. Patient has a right otitis media with eustachian tube dysfunction. Patient does have underlying seasonal ALLERGIES advise continue [id number] medications as directed patient was started on amoxicillin return parameters were discussed. (Nicolas Garvey) I was available for consultation in the emergency department. The history and physical exam were done by the Midlevel Provider. Medical decision making was done by the Midlevel Provider. The Midlevel Provider did not contact me for this patient's care. I was not directly involved in this patient's care. (Rama Hdez) Disposition Is patient prescribed a controlled substance at d/c from ED?: No Time of Disposition: 00:52 <Nicolas Garvey - Last Filed: 12/05/17 00:50> <Rama Hdez - Last Filed: 12/05/17 23:02> Clinical Impression: Otitis media, Eustachian tube dysfunction Disposition: HOME SELF-CARE Condition: Stable Instructions: Earache (ED) Additional Instructions: Please return to the Emergency Department if symptoms worsen or any other concerns. Prescriptions: Amoxicillin 875 mg PO Q12HR #20 tablet Referrals: Lazaro Rainey MD [Primary Care Provider] - 1-2 days
[2017-12-05 01:02] VITALS: RESP 16
== END 2017-12-05 01:01 | disposition home or self-care (01) ==
LOC: EC 00:34
DX: H66.91 Otitis media, unspecified, right ear (principal); H69.91 Unspecified Eustachian tube disorder, right ear; Z88.1 Allergy status to other antibiotic agents; Z88.2 Allergy status to sulfonamides; Z91.048 Other nonmedicinal substance allergy status
CPT/HCPCS: 99282

== ENCOUNTER → 2018-01-04 | Outpatient (CLI) | payer BC, OTHER ==
--- NOTE | 2018-01-04 15:18 | XR ---
EXAMINATION TYPE: XR hand complete LT DATE OF EXAM: 01/04/2018 COMPARISON: NONE HISTORY: 22-year-old female left hand injury, pinky pain after jamming it in a car limon. TECHNIQUE: 4 views FINDINGS: No acute fracture, subluxation, or dislocation. Joint spaces are maintained. IMPRESSION: No acute osseous abnormality seen.
== END | disposition home or self-care (01) ==
LOC: RADXRYALE 12:45
PROVIDERS: ATTEND Internal Medicine
DX: S69.92XA Unspecified injury of left wrist, hand and finger(s), initial encounter (principal)

== ENCOUNTER 2018-09-28 22:47 | Emergency (ER) | payer BC, OTHER ==
[2018-09-28 23:01] VITALS: RESP 18; TEMP 98.5
[2018-09-29] MEDS ORDERED: SODIUM CHLORIDE 0.9% 1,000 ML IV STA (00:14)
[2018-09-29] MEDS ORDERED: diphenhydrAMINE 50 MG/ML 1 ML VIAL IVP STA (00:26)
[2018-09-29] MEDS ORDERED: MORPHINE SULFATE 2 MG/ML SYRINGE IVP ONE (00:26)
[2018-09-29] MEDS ORDERED: METOCLOPRAMIDE 5 MG/ML 2 ML VIAL IVP STA (00:26)
[2018-09-29 00:55] LABS: Basophils % (A) 0 %; Eosinophils # (A) 0.1 k/uL (0-0.7); Eosinophils % (A) 2 %; HCT 40.8 % (34.0-46.0); Lymphocytes # (A) 1.4 k/uL (1.0-4.8); Lymphocytes % (A) 19 %; MCH 29.8 pg (25.0-35.0); MCHC 34.3 g/dL (31.0-37.0); MCV 86.9 fL (80.0-100.0); Mean Platelet Volume 7.3; Monocytes # (A) 0.4 k/uL (0-1.0); Monocytes % (A) 6 %; Neutrophils # (A) 5.1 k/uL (1.3-7.7); Neutrophils % (A) 72 %; Platelet Count 230 k/uL (150-450); RBC 4.69 m/uL (3.80-5.40); WBC 7.2 k/uL (3.8-10.6)
[2018-09-29 01:11] LABS: Appearance,Urine Cloudy (Clear); Bacteria,Urine Rare /hpf; Bilirubin,Urine Negative (Negative); Blood,Urine Negative (Negative); Color,Urine Yellow; Glucose,Urine (UA) Negative (Negative); Ketones,Urine Negative (Negative); Leukocyte Esterase,Urine Negative (Negative); Mucus,Urine Occasional /hpf; Nitrite,Urine Negative (Negative); PH, Urine 6.5 (5.0-8.0); Protein,Urine 1+ (Negative); RBC,Urine 4 /hpf (0-5); Squamous Epithelial Cell,Urine 12 /hpf (0-4); WBC,Urine 7 /hpf (0-5)
[2018-09-29 01:21] LABS: ALT 124 U/L (9-52); AST 87 U/L (14-36); African American GFR (CKD) >90 (>60 ml/min/1.73 sqM); Albumin 4.8 g/dL (3.5-5.0); Alkaline Phosphatase 49 U/L (38-126); Amylase 40 U/L (30-110); Anion Gap 14 mmol/L; Blood Urea Nitrogen 9 mg/dL (7-17); Calcium 9.2 mg/dL (8.4-10.2); Carbon Dioxide 24 mmol/L (22-30); Chloride 103 mmol/L (98-107); Glucose 140 mg/dL (74-99); Lipase 61 U/L (23-300); Potassium 3.5 mmol/L (3.5-5.1); Sodium 141 mmol/L (137-145); Total Bilirubin 0.7 mg/dL (0.2-1.3); Total Protein 7.5 g/dL (6.3-8.2)
[2018-09-29 01:56] LABS: Specific Gravity,Urine 1.046 (1.001-1.035)
--- NOTE | 2018-09-29 02:23 | ED ---
Nausea/Vomiting/Diarrhea HPI - General Chief complaint: Nausea/Vomiting/Diarrhea Stated complaint: Abdominal Pain, Nausea Time Seen by Provider: 09/29/18 00:13 Source: patient, RN notes reviewed, old records reviewed Mode of arrival: ambulatory Limitations: no limitations - History of Present Illness Initial comments: Patient is 23-year-old female who presents emergency Department today with complaint of abdominal pain, vomiting. She reports symptoms started yesterday after she ate she stated that her stomach is upset. Attention meters self-harm. Patient reports she woke to the melena and began vomiting. Patient was seen in the [facility] department [facility]. She started to develop some lower abdominal cramping and feels like a band around her abdomen. At that time she was given IV fluids. The last time lab work was reviewed and unremarkable. CT and pelvis was completed today evidence of enlarged liver and some inflammatory changes of enteritis. Patient states that she didn't believe that that was only thing causing her pain and felt that she needed to be seen in emergency room. She states the pain symptoms radiate down her legs and throughout her entire abdomen. Past medical history includes cholecystectomy. - Related Data Previous Rx's Medication Instructions Recorded Amoxicillin/Potassium Clav 1 tab PO Q12HR #20 tab 10/07/17 [Augmentin 875-125 Tablet] Amoxicillin 875 mg PO Q12HR #20 tablet 12/05/17 Famotidine [Pepcid] 20 mg PO BID #20 tablet 09/29/18 Metoclopramide HCl [Reglan] 10 mg PO TID #20 tablet 09/29/18 Allergies Allergy/AdvReac Type Severity Reaction Status Date / Time sulfamethoxazole Allergy Rash/Hives Verified 09/28/18 23:01 [From Bactrim] trimethoprim [From Bactrim] Allergy Rash/Hives Verified 09/28/18 23:01 mosquitos Allergy Rash/Hives Uncoded 09/28/18 23:01 Review of Systems ROS Statement: Those systems with pertinent positive or pertinent negative responses have been documented in the HPI. ROS Other: All systems not noted in ROS Statement are negative. Past Medical History Past Medical History: Diabetes Mellitus Additional Past Medical History / Comment(s): KIDNEY STONES, ovarian cyst, gestational diabetes, History of Any Multi-Drug Resistant Organisms: MRSA Date of last positivie culture/infection: 2012 MDRO Source:: BUTTOCK/BREAST Past Surgical History: Cholecystectomy, Hernia Repair Additional Past Surgical History / Comment(s): Left inguinal hernia repair, Past Anesthesia/Blood Transfusion Reactions: No Reported Reaction Past Psychological History: ADD/ADHD, Depression Smoking Status: Current every day smoker Past Alcohol Use History: Occasional Past Drug Use History: Marijuana - Past Family History Mother Additional Family Medical History / Comment(s): Mother is alive at age 41 with no major medical problems. Patient has 2 half-brothers and one half-sister with no major medical problems. Father Family Medical History: No Reported History Additional Family Medical History / Comment(s): Father is alive at age 46 with history of celiac disease General Exam - General Exam Comments Initial Comments: Alert and oriented 23-year-old female. No distress. Limitations: no limitations Head exam: Present: atraumatic, normocephalic, normal inspection Eye exam: Present: normal appearance, PERRL, EOMI. Absent: scleral icterus, conjunctival injection, periorbital swelling ENT exam: Present: normal exam, mucous membranes moist Neck exam: Present: normal inspection. Absent: tenderness, meningismus, lymphadenopathy Respiratory exam: Present: normal lung sounds bilaterally. Absent: respiratory distress, wheezes, rales, rhonchi, stridor Cardiovascular Exam: Present: regular rate, normal rhythm, normal heart sounds. Absent: systolic murmur, diastolic murmur, rubs, gallop, clicks GI/Abdominal exam: Present: soft, normal bowel sounds. Absent: distended, tenderness, guarding, rebound, rigid Extremities exam: Present: normal inspection, full ROM, normal capillary refill. Absent: tenderness, pedal edema, joint swelling, calf tenderness Back exam: Present: normal inspection Neurological exam: Present: alert Psychiatric exam: Present: normal affect, normal mood Skin exam: Present: warm, dry, intact, normal color. Absent: rash Course Vital Signs 09/28/18 09/29/18 22:56 02:38 Temperature 98.5 F Pulse Rate 115 H 96 Respiratory 18 18 Rate Blood Pressure 146/93 125/61 O2 Sat by Pulse 100 98 Oximetry Medical Decision Making - Medical Decision Making 23-year-old female presents today for evaluation for recheck nausea vomiting abdominal pain. He was seen at [facility] at that time labs are reviewed and unremarkable and Patient had a computed tomography scan. CT report showed since prominent fluid-filled small bowel loops and lower abdomen and pelvis liquid stool. Correlating for enteritis. Mild hepatomegaly. Otherwise no acute plantar process seen in her pelvis. Patient's labwork reevaluation today is otherwise unremarkable. Patient informed that the benign computed tomography scan earlier today and no change in labwork no need for further imaging. Patient's likely suffering from viral illness. Discussed clear liquid diet and close PCP follow up. - Lab Data Result diagrams: 09/29/18 00:31 09/29/18 00:31 Lab Results 09/29/18 09/29/18 09/29/18 Range/Units 00:30 00:31 00:31 WBC 7.2 (3.8-10.6) k/uL RBC 4.69 (3.80-5.40) m/uL Hgb 14.0 (11.4-16.0) gm/dL Hct 40.8 (34.0-46.0) % MCV 86.9 (80.0-100.0) fL MCH 29.8 (25.0-35.0) pg MCHC 34.3 (31.0-37.0) g/dL RDW 13.0 (11.5-15.5) % Plt Count 230 (150-450) k/uL Neutrophils % 72 % Lymphocytes % 19 % Monocytes % 6 % Eosinophils % 2 % Basophils % 0 % Neutrophils # 5.1 (1.3-7.7) k/uL Lymphocytes # 1.4 (1.0-4.8) k/uL Monocytes # 0.4 (0-1.0) k/uL Eosinophils # 0.1 (0-0.7) k/uL Basophils # 0.0 (0-0.2) k/uL Sodium 141 (137-145) mmol/L Potassium 3.5 (3.5-5.1) mmol/L Chloride 103 (98-107) mmol/L Carbon Dioxide 24 (22-30) mmol/L Anion Gap 14 mmol/L BUN 9 (7-17) mg/dL Creatinine 0.46 L (0.52-1.04) mg/dL Est GFR (CKD-EPI)AfAm >90 (>60 ml/min/1.73 sqM) Est GFR (CKD-EPI)NonAf >90 (>60 ml/min/1.73 sqM) Glucose 140 H (74-99) mg/dL Calcium 9.2 (8.4-10.2) mg/dL Total Bilirubin 0.7 (0.2-1.3) mg/dL AST 87 H (14-36) U/L ALT 124 H (9-52) U/L Alkaline Phosphatase 49 (38-126) U/L Total Protein 7.5 (6.3-8.2) g/dL Albumin 4.8 (3.5-5.0) g/dL Amylase 40 (30-110) U/L Lipase 61 (23-300) U/L Urine Color Yellow Urine Appearance Cloudy H (Clear) Urine pH 6.5 (5.0-8.0) Ur Specific [place] 1.046 H (1.001-1.035) Urine Protein 1+ H (Negative) Urine Glucose (UA) Negative (Negative) Urine Ketones Negative (Negative) Urine Blood Negative (Negative) Urine Nitrite Negative (Negative) Urine Bilirubin Negative (Negative) Urine Urobilinogen 4.0 (<2.0) mg/dL Ur Leukocyte Esterase Negative (Negative) Urine RBC 4 (0-5) /hpf Urine WBC 7 H (0-5) /hpf Ur Squamous Epith Cells 12 H (0-4) /hpf Urine Bacteria Rare H (None) /hpf Urine Mucus Occasional H (None) /hpf Disposition Clinical Impression: Enteritis Disposition: HOME SELF-CARE Condition: Good Instructions (If sedation given, give patient instructions): Acute Nausea and Vomiting (ED) Additional Instructions: Advised to rest, increase fluids. Follow-up with GI specialty and PCP.. Prescriptions: Famotidine [Pepcid] 20 mg PO BID #20 tablet Metoclopramide HCl [Reglan] 10 mg PO TID #20 tablet Is patient prescribed a controlled substance at d/c from ED?: No Referrals: Devika Friedman MD [Primary Care Provider] - 1-2 days Negra Romano MD [STAFF PHYSICIAN] - 1-2 days Time of Disposition: 02:22
[2018-09-29 02:39] VITALS: BP 125/61; PULSE 96
== END 2018-09-29 02:38 | disposition home or self-care (01) ==
LOC: EC 22:47
DX: K52.9 Noninfective gastroenteritis and colitis, unspecified (principal); F17.200 Nicotine dependence, unspecified, uncomplicated; Z88.2 Allergy status to sulfonamides; Z91.038 Other insect allergy status; Z86.14 Personal history of Methicillin resistant Staphylococcus aureus infection; Z90.49 Acquired absence of other specified parts of digestive tract; Z83.79 Family history of other diseases of the digestive system
CPT/HCPCS: 36415; 80053; 82150; 83690; 85025; 81001; 99284; 96374; 96375 ×2; 96361; J1200; J2765; J2270

== ENCOUNTER 2021-06-06 14:09 | Emergency (ER) | payer BC, OTHER ==
[2021-06-06 14:29] VITALS: BP 119/78; PULSE 114; RESP 18; TEMP 98.2
[2021-06-06] MEDS ORDERED: ACET/COD 300 MG/30 MG STARTER PACK 6 TAB BTL PO STA (14:42)
--- NOTE | 2021-06-06 14:43 | ED ---
ENT HPI - General Chief complaint: Dental/Oral Stated complaint: Oral pain Time Seen by Provider: 06/06/21 14:37 Source: patient, RN notes reviewed Mode of arrival: ambulatory Limitations: no limitations - History of Present Illness Initial comments: 25-year-old female presents emergency Department with chief complaint dental pain. Patient states that she saw the dentist this week and they told her that she needs a tooth extracted. Patient states she told there is no infection of the time but now she has increasing pain, swelling, chills. No difficulty swallowing no other complaints. - Related Data Previous Rx's Medication Instructions Recorded Amoxicillin/Potassium Clav 1 tab PO Q12HR #20 tab 10/07/17 [Augmentin 875-125 Tablet] Amoxicillin 875 mg PO Q12HR #20 tablet 12/05/17 Famotidine [Pepcid] 20 mg PO BID #20 tablet 09/29/18 Metoclopramide HCl [Reglan] 10 mg PO TID #20 tablet 09/29/18 Penicillin V Potassium [Pen Vee K] 500 mg PO QID #40 tablet 06/06/21 Allergies Allergy/AdvReac Type Severity Reaction Status Date / Time sulfamethoxazole Allergy Rash/Hives Verified 06/06/21 14:29 [From Bactrim] trimethoprim [From Bactrim] Allergy Rash/Hives Verified 06/06/21 14:29 mosquitos Allergy Rash/Hives Uncoded 06/06/21 14:29 Review of Systems ROS Statement: Those systems with pertinent positive or pertinent negative responses have been documented in the HPI. ROS Other: All systems not noted in ROS Statement are negative. Past Medical History Past Medical History: Diabetes Mellitus Additional Past Medical History / Comment(s): KIDNEY STONES, ovarian cyst, gestational diabetes, History of Any Multi-Drug Resistant Organisms: MRSA Date of last positivie culture/infection: 2012 MDRO Source:: BUTTOCK/BREAST Past Surgical History: Cholecystectomy, Hernia Repair Additional Past Surgical History / Comment(s): Left inguinal hernia repair, Past Anesthesia/Blood Transfusion Reactions: No Reported Reaction Past Psychological History: ADD/ADHD, Depression Smoking Status: Never smoker Past Alcohol Use History: Occasional Past Drug Use History: Marijuana - Past Family History Mother Additional Family Medical History / Comment(s): Mother is alive at age 41 with no major medical problems. Patient has 2 half-brothers and one half-sister with no major medical problems. Father Family Medical History: No Reported History Additional Family Medical History / Comment(s): Father is alive at age 46 with history of celiac disease General Exam Limitations: no limitations General appearance: alert, in no apparent distress Head exam: Present: atraumatic, normocephalic, normal inspection Eye exam: Present: normal appearance, PERRL, EOMI. Absent: scleral icterus, conjunctival injection, periorbital swelling ENT exam: Present: mucous membranes moist, TM's normal bilaterally, normal external ear exam. Absent: normal oropharynx (Dental fracture right lower, mild swelling swelling along the mandible) Neck exam: Present: normal inspection, full ROM. Absent: tenderness, men ingismus, lymphadenopathy Respiratory exam: Present: normal lung sounds bilaterally. Absent: respiratory distress, wheezes, rales, rhonchi, stridor Cardiovascular Exam: Present: normal rhythm, tachycardia, normal heart sounds. Absent: systolic murmur, diastolic murmur, rubs, gallop, clicks Neurological exam: Present: alert Course Vital Signs 06/06/21 14:27 Temperature 98.2 F Pulse Rate 114 H Respiratory 18 Rate Blood Pressure 119/78 O2 Sat by Pulse 100 Oximetry Medical Decision Making - Medical Decision Making Patient has dental infection no drainable abscess she has a follow-up with this week with dentist she was placed on Pen-Vee K with close return parameters. Disposition Clinical Impression: Dental abscess, Toothache Disposition: HOME SELF-CARE Condition: Fair Instructions (If sedation given, give patient instructions): Dental Abscess (ED) Additional Instructions: Please return to the emergency department for any worsening or change in symptoms. Prescriptions: Penicillin V Potassium [Pen Vee K] 500 mg PO QID #40 tablet Is patient prescribed a controlled substance at d/c from ED?: No Referrals: Devika Friedman MD [Primary Care Provider] - 1-2 days Time of Disposition: 14:43
== END 2021-06-06 14:51 | disposition home or self-care (01) ==
LOC: EC 14:09
DX: K04.7 Periapical abscess without sinus (principal); K08.89 Other specified disorders of teeth and supporting structures; E11.9 Type 2 diabetes mellitus without complications; Z88.2 Allergy status to sulfonamides; Z91.038 Other insect allergy status
CPT/HCPCS: 99282

== ENCOUNTER 2021-06-08 09:53 | Emergency (ER) | payer OTHER ==
[2021-06-08 10:01] VITALS: BP 131/84; PULSE 119; RESP 20; TEMP 98.3
[2021-06-08] MEDS ORDERED: HYDROcodone/APAP 7.5-325MG 1 EACH TAB PO ONE (11:15)
[2021-06-08] MEDS ORDERED: ACET/COD 300 MG/30 MG STARTER PACK 6 TAB BTL PO STA (11:15)
--- NOTE | 2021-06-08 11:18 | ED ---
ENT HPI - General Chief complaint: Dental/Oral Stated complaint: dental pain/swelling-revisit Time Seen by Provider: 06/08/21 10:13 Source: patient, RN notes reviewed Mode of arrival: ambulatory Limitations: no limitations - History of Present Illness Initial comments: This a 25-year-old female presents emergency department Department with chief complaint right-sided dental pain. Patient states started or week ago. She was placed on Pen-Vee K states that she's been taken but not be helping. Patient states she has increasing pain. She states is mild swelling she did call her dentist recommended come back to emergency department. She has not seen there she does have an appointment in 10 days. Patient denies fevers or chills no difficulty breathing or swallowing. - Related Data Previous Rx's Medication Instructions Recorded Amoxicillin/Potassium Clav 1 tab PO Q12HR #20 tab 10/07/17 [Augmentin 875-125 Tablet] Amoxicillin 875 mg PO Q12HR #20 tablet 12/05/17 Famotidine [Pepcid] 20 mg PO BID #20 tablet 09/29/18 Metoclopramide HCl [Reglan] 10 mg PO TID #20 tablet 09/29/18 Penicillin V Potassium [Pen Vee K] 500 mg PO QID #40 tablet 06/06/21 Clindamycin HCl 300 mg PO Q6HR #40 cap 06/08/21 Allergies Allergy/AdvReac Type Severity Reaction Status Date / Time sulfamethoxazole Allergy Rash/Hives Verified 06/08/21 10:00 [From Bactrim] trimethoprim [From Bactrim] Allergy Rash/Hives Verified 06/08/21 10:00 mosquitos Allergy Rash/Hives Uncoded 06/08/21 10:00 Review of Systems ROS Statement: Those systems with pertinent positive or pertinent negative responses have been documented in the HPI. ROS Other: All systems not noted in ROS Statement are negative. Past Medical History Past Medical History: Diabetes Mellitus Additional Past Medical History / Comment(s): KIDNEY STONES, ovarian cyst, gestational diabetes, History of Any Multi-Drug Resistant Organisms: MRSA Date of last positivie culture/infection: 2012 MDRO Source:: BUTTOCK/BREAST Past Surgical History: Cholecystectomy, Hernia Repair Additional Past Surgical History / Comment(s): Left inguinal hernia repair, Past Anesthesia/Blood Transfusion Reactions: No Reported Reaction Past Psychological History: ADD/ADHD, Depression Smoking Status: Never smoker Past Alcohol Use History: Occasional Past Drug Use History: Marijuana - Past Family History Mother Additional Family Medical History / Comment(s): Mother is alive at age 41 with no major medical problems. Patient has 2 half-brothers and one half-sister with no major medical problems. Father Family Medical History: No Reported History Additional Family Medical History / Comment(s): Father is alive at age 46 with history of celiac disease General Exam Limitations: no limitations General appearance: alert, in no apparent distress Head exam: Present: atraumatic, normocephalic, normal inspection Eye exam: Present: normal appearance, PERRL, EOMI. Absent: scleral icterus, conjunctival injection, periorbital swelling ENT exam: Present: mucous membranes moist. Absent: normal oropharynx (Mild swelling the right, dental fracture, no drainable abscess) Neck exam: Present: normal inspection, full ROM. Absent: tenderness, meningismus, lymphadenopathy Respiratory exam: Present: normal lung sounds bilaterally. Absent: respiratory distress, wheezes, rales, rhonchi, stridor Cardiovascular Exam: Present: regular rate, normal rhythm, normal heart sounds. Absent: systolic murmur, diastolic murmur, rubs, gallop, clicks Course Vital Signs 06/08/21 09:58 Temperature 98.3 F Pulse Rate 119 H Respiratory 20 Rate Blood Pressure 131/84 O2 Sat by Pulse 98 Oximetry Medical Decision Making - Medical Decision Making Patient has right-sided dental infection was placed on clindamycin, pain control. Patient otherwise palpable her dentist return for worsening changes symptoms. Disposition Clinical Impression: Dental abscess, Toothache Disposition: HOME SELF-CARE Condition: Stable Instructions (If sedation given, give patient instructions): Dental Abscess (ED) Additional Instructions: Please return to the Emergency Department if symptoms worsen or any other concerns. Prescriptions: Clindamycin HCl 300 mg PO Q6HR #40 cap Is patient prescribed a controlled substance at d/c from ED?: No Referrals: Devika Friedman MD [Primary Care Provider] - 1-2 days Time of Disposition: 11:18
== END 2021-06-08 11:51 | disposition home or self-care (01) ==
LOC: EC 09:53
DX: K08.89 Other specified disorders of teeth and supporting structures (principal); K04.7 Periapical abscess without sinus; E11.9 Type 2 diabetes mellitus without complications; Z88.2 Allergy status to sulfonamides
CPT/HCPCS: 99282

== ENCOUNTER 2021-10-14 15:43 | Emergency (ER) | payer OTHER ==
[2021-10-14 15:48] VITALS: PULSE 106; RESP 16; TEMP 97.7
[2021-10-14 15:49] VITALS: BP 136/89
[2021-10-14 16:21] LABS: Basophils # (A) 0.1 k/uL (0-0.2); Basophils % (A) 1 %; Eosinophils # (A) 0.1 k/uL (0-0.7); Eosinophils % (A) 2 %; HCT 42.9 % (34.0-46.0); HGB 14.9 gm/dL (11.4-16.0); Lymphocytes # (A) 2.3 k/uL (1.0-4.8); Lymphocytes % (A) 30 %; MCH 29.3 pg (25.0-35.0); MCHC 34.7 g/dL (31.0-37.0); MCV 84.4 fL (80.0-100.0); Mean Platelet Volume 7.5; Monocytes # (A) 0.4 k/uL (0-1.0); Monocytes % (A) 6 %; Neutrophils # (A) 4.6 k/uL (1.3-7.7); Neutrophils % (A) 60 %; Platelet Count 320 k/uL (150-450); RBC 5.08 m/uL (3.80-5.40); WBC 7.6 k/uL (3.8-10.6)
[2021-10-14 16:27] LABS: Appearance,Urine Clear (Clear); Bilirubin,Urine Negative (Negative); Blood,Urine Negative (Negative); Color,Urine Light Yellow; Glucose,Urine (UA) 4+ (Negative); Ketones,Urine Negative (Negative); Leukocyte Esterase,Urine Negative (Negative); Nitrite,Urine Negative (Negative); Protein,Urine Negative (Negative); Specific Gravity,Urine 1.039 (1.001-1.035); Urobilinogen,Urine <2.0 mg/dL (<2.0)
[2021-10-14 16:41] LABS: ALT 29 U/L (4-34); African American GFR (CKD) >90 (>60 ml/min/1.73 sqM); Albumin 5.3 g/dL (3.5-5.0); Anion Gap 13 mmol/L; Blood Urea Nitrogen 8 mg/dL (7-17); Calcium 9.9 mg/dL (8.4-10.2); Carbon Dioxide 22 mmol/L (22-30); Chloride 102 mmol/L (98-107); Glucose 289 mg/dL (74-99); Non-African American GFR(CKD) >90 (>60 ml/min/1.73 sqM); Sodium 137 mmol/L (137-145); Total Bilirubin 0.9 mg/dL (0.2-1.3); Total Protein 8.8 g/dL (6.3-8.2)
[2021-10-14 16:43] LABS: AST 38 U/L (14-36); Alkaline Phosphatase 53 U/L (38-126); Potassium 4.2 mmol/L (3.5-5.1)
[2021-10-14 16:57] LABS: HCG,Quantitative Serum 1739.9 mIU/mL
--- NOTE | 2021-10-14 17:39 | US ---
EXAMINATION TYPE: Transabdominal DATE OF EXAM: 10/14/2021 5:00 PM COMPARISON: None CLINICAL HISTORY: pain; spotting EXAM PERFORMED: Transvaginal (TV) and Transabdominal (TA) EXAM MEASUREMENTS: GESTATIONAL AGE / DATING Physician Established: Not yet established Dates by LMP: (5 weeks/5 days) EDC: 06/11/2022 Dates by First Scan: No previous this is first scan Dates by Current Scan for: Unable to date by today's study MATERNAL ANATOMY Uterus: 8.5 x 4.8 x 5.2 cm Right Ovary: 2.5 x 1.2 x 1.3 cm Left Ovary: 3.5 x 2.1 x 2.4 cm Post CDS / Adnexa: Free fluid adjacent to bilateral ovaries. Presence of corpus luteal cyst: left ovary = 2.0 x 1.8 x 1.6 cm Presence of subchorionic bleed: no GESTATION / SURVEY CRL: Not visualized MSD: 0.5 cm (Too small to measured) Yolk Sac (normal less than 6mm): Not visualized IUP: No IUP seen at this time Date of LMP: 09/04/2021, Beta HcG (if available): Not available at time of scan IMPRESSION: 1. Possible GS seen within endometrial canal; no yolk sac or CRL visualized. 2. Scant volume of simple-appearing cul-de-sac fluid. Follow-up ultrasound and beta hCG can further characterize.
--- NOTE | 2021-10-14 17:59 | ED ---
Abdominal Pain HPI - General Chief Complaint: Abdominal Pain Stated Complaint: ABD pain, possible preg Time Seen by Provider: 10/14/21 15:50 Source: patient Mode of arrival: ambulatory Limitations: no limitations - History of Present Illness Initial Comments: Patient is a 26-year-old female currently presenting with chief complaint of pelvic cramping and light vaginal bleeding. Symptoms started yesterday. Patient states bleeding has subsided but cramping is still present. LMP was 09/04/21. She is a with 1 miscarriage. She denies any chest pain, shortness of breath, fever, chills, nausea, vomiting, vaginal discharge, dysuria, hematuria, urgency, frequency, flank pain, diarrhea, hematochezia, melena. - Related Data Previous Rx's Medication Instructions Recorded Amoxicillin/Potassium Clav 1 tab PO Q12HR #20 tab 10/07/17 [Augmentin 875-125 Tablet] Amoxicillin 875 mg PO Q12HR #20 tablet 12/05/17 Famotidine [Pepcid] 20 mg PO BID #20 tablet 09/29/18 Metoclopramide HCl [Reglan] 10 mg PO TID #20 tablet 09/29/18 Penicillin V Potassium [Pen Vee K] 500 mg PO QID #40 tablet 06/06/21 clindamycin HCL [Clindamycin HCl] 300 mg PO Q6HR #40 cap 06/08/21 Allergies Allergy/AdvReac Type Severity Reaction Status Date / Time sulfamethoxazole Allergy Rash/Hives Verified 10/14/21 15:48 [From Bactrim] trimethoprim [From Bactrim] Allergy Rash/Hives Verified 10/14/21 15:48 mosquitos Allergy Rash/Hives Uncoded 10/14/21 15:48 Review of Systems ROS Statement: Those systems with pertinent positive or pertinent negative responses have been documented in the HPI. ROS Other: All systems not noted in ROS Statement are negative. Past Medical History Past Medical History: Diabetes Mellitus Additional Past Medical History / Comment(s): KIDNEY STONES, ovarian cyst, gestational diabetes, History of Any Multi-Drug Resistant Organisms: MRSA Date of last positivie culture/infection: 2012 MDRO Source:: BUTTOCK/BREAST Past Surgical History: Cholecystectomy, Hernia Repair Additional Past Surgical History / Comment(s): Left inguinal hernia repair, Past Anesthesia/Blood Transfusion Reactions: No Reported Reaction Past Psychological History: ADD/ADHD, Depression Smoking Status: Never smoker Past Alcohol Use History: Occasional Past Drug Use History: Marijuana - Past Family History Mother Additional Family Medical History / Comment(s): Mother is alive at age 41 with no major medical problems. Patient has 2 half-brothers and one half-sister with no major medical problems. Father Family Medical History: No Reported History Additional Family Medical History / Comment(s): Father is alive at age 46 with history of celiac disease General Exam Limitations: no limitations General appearance: alert, in no apparent distress Head exam: Present: atraumatic, normocephalic, normal inspection Eye exam: Present: normal appearance, EOMI. Absent: scleral icterus, periorbital swelling Neck exam: Present: normal inspection Respiratory exam: Present: normal lung sounds bilaterally. Absent: respiratory distress, wheezes, rales, rhonchi, stridor Cardiovascular Exam: Present: regular rate, normal rhythm, normal heart sounds. Absent: systolic murmur, diastolic murmur, rubs, gallop, clicks Neurological exam: Present: alert, oriented X3, CN II-XII intact Psychiatric exam: Present: normal affect, normal mood Skin exam: Present: warm, dry, intact, normal color. Absent: rash Course Vital Signs 10/14/21 15:45 Temperature 97.7 F Pulse Rate 106 H Respiratory 16 Rate Blood Pressure 136/89 O2 Sat by Pulse 100 Oximetry Medical Decision Making - Medical Decision Making Patient is a 26-year-old female with history of miscarriage presenting with chief complaint of vaginal bleeding and cramping. Patient took a test earlier this week that was positive. LMP 09/04. Yesterday she began experiencing cramping and light vaginal bleeding. Today the bleeding has subsided but cramping is still present. Examination is unremarkable. Hemoglobin is 14.9. Glucose is 289. Urine shows no signs of UTI. Patient is blood type O positive. Due to early gestational age, ultrasound is not able to confirm a live IUP, there is a possible gestational sac seen within the endometrial canal. Educated the patient on these findings and instructed her to follow up with her [facility] Dr. Miller. Report back to ER if any new or worsening symptoms. Discussed return parameters answered all questions. Patient conveyed verbal understanding and agreed to the plan. I discussed this case with my attending Dr. Collins. - Lab Data Result diagrams: 10/14/21 16:09 10/14/21 16:09 Lab Results 10/14/21 10/14/21 10/14/21 Range/Units 16:09 16:09 16:09 WBC 7.6 (3.8-10.6) k/uL RBC 5.08 (3.80-5.40) m/uL Hgb 14.9 (11.4-16.0) gm/dL Hct 42.9 (34.0-46.0) % MCV 84.4 (80.0-100.0) fL MCH 29.3 (25.0-35.0) pg MCHC 34.7 (31.0-37.0) g/dL RDW 14.0 (11.5-15.5) % Plt Count 320 (150-450) k/uL MPV 7.5 Neutrophils % 60 % Lymphocytes % 30 % Monocytes % 6 % Eosinophils % 2 % Basophils % 1 % Neutrophils # 4.6 (1.3-7.7) k/uL Lymphocytes # 2.3 (1.0-4.8) k/uL Monocytes # 0.4 (0-1.0) k/uL Eosinophils # 0.1 (0-0.7) k/uL Basophils # 0.1 (0-0.2) k/uL Sodium 137 (137-145) mmol/L Potassium 4.2 (3.5-5.1) mmol/L Chloride 102 (98-107) mmol/L Carbon Dioxide 22 (22-30) mmol/L Anion Gap 13 mmol/L BUN 8 (7-17) mg/dL Creatinine 0.37 L (0.52-1.04) mg/dL Est GFR (CKD-EPI)AfAm >90 (>60 ml/min/1.73 sqM) Est GFR (CKD-EPI)NonAf >90 (>60 ml/min/1.73 sqM) Glucose 289 H (74-99) mg/dL Calcium 9.9 (8.4-10.2) mg/dL Total Bilirubin 0.9 (0.2-1.3) mg/dL AST 38 H (14-36) U/L ALT 29 (4-34) U/L Alkaline Phosphatase 53 (38-126) U/L Total Protein 8.8 H (6.3-8.2) g/dL Albumin 5.3 H (3.5-5.0) g/dL HCG, Quant 1739.9 mIU/mL Urine Color Light Yellow Urine Appearance Clear (Clear) Urine pH 7.0 (5.0-8.0) Ur Specific [place] 1.039 H (1.001-1.035) Urine Protein Negative (Negative) Urine Glucose (UA) 4+ H (Negative) Urine Ketones Negative (Negative) Urine Blood Negative (Negative) Urine Nitrite Negative (Negative) Urine Bilirubin Negative (Negative) Urine Urobilinogen <2.0 (<2.0) mg/dL Ur Leukocyte Esterase Negative (Negative) Blood Type Blood Type Recheck Bld Type Recheck Status 10/14/21 Range/Units 16:09 WBC (3.8-10.6) k/uL RBC (3.80-5.40) m/uL Hgb (11.4-16.0) gm/dL Hct (34.0-46.0) % MCV (80.0-100.0) fL MCH (25.0-35.0) pg MCHC (31.0-37.0) g/dL RDW (11.5-15.5) % Plt Count (150-450) k/uL MPV Neutrophils % % Lymphocytes % % Monocytes % % Eosinophils % % Basophils % % Neutrophils # (1.3-7.7) k/uL Lymphocytes # (1.0-4.8) k/uL Monocytes # (0-1.0) k/uL Eosinophils # (0-0.7) k/uL Basophils # (0-0.2) k/uL Sodium (137-145) mmol/L Potassium (3.5-5.1) mmol/L Chloride (98-107) mmol/L Carbon Dioxide (22-30) mmol/L Anion Gap mmol/L BUN (7-17) mg/dL Creatinine (0.52-1.04) mg/dL Est GFR (CKD-EPI)AfAm (>60 ml/min/1.73 sqM) Est GFR (CKD-EPI)NonAf (>60 ml/min/1.73 sqM) Glucose (74-99) mg/dL Calcium (8.4-10.2) mg/dL Total Bilirubin (0.2-1.3) mg/dL AST (14-36) U/L ALT (4-34) U/L Alkaline Phosphatase (38-126) U/L Total Protein (6.3-8.2) g/dL Albumin (3.5-5.0) g/dL HCG, Quant mIU/mL Urine Color Urine Appearance (Clear) Urine pH (5.0-8.0) Ur Specific [place] (1.001-1.035) Urine Protein (Negative) Urine Glucose (UA) (Negative) Urine Ketones (Negative) Urine Blood (Negative) Urine Nitrite (Negative) Urine Bilirubin (Negative) Urine Urobilinogen (<2.0) mg/dL Ur Leukocyte Esterase (Negative) Blood Type O Positive Blood Type Recheck O Pos Bld Type Recheck Status No Disposition Clinical Impression: Threatened Disposition: HOME SELF-CARE Condition: Good Instructions (If sedation given, give patient instructions): Threatened Miscarriage (ED) Additional Instructions: Follow up with [facility] in one to 2 days. Report back to ER if any new or worsening symptoms. Take Tylenol as needed for pain control. Get plenty of r est and stay well-hydrated. Is patient prescribed a controlled substance at d/c from ED?: No Referrals: None,Stated [Primary Care Provider] - 1-2 days Time of Disposition: 17:59
== END 2021-10-14 18:08 | disposition home or self-care (01) ==
LOC: EC 15:43
DX: O20.0 Threatened abortion (principal); O99.321 Drug use complicating pregnancy, first trimester; O99.341 Other mental disorders complicating pregnancy, first trimester; O24.911 Unspecified diabetes mellitus in pregnancy, first trimester; E11.9 Type 2 diabetes mellitus without complications; F90.9 Attention-deficit hyperactivity disorder, unspecified type; F32.A Depression, unspecified; Z72.89 Other problems related to lifestyle; F12.90 Cannabis use, unspecified, uncomplicated; Z3A.01 Less than 8 weeks gestation of pregnancy; Z88.2 Allergy status to sulfonamides
CPT/HCPCS: 36415; 76801; 76817; 80053; 81003; 84702; 85025; 86900; 86901; 99284

== ENCOUNTER → 2021-11-17 | Outpatient (CLI) | payer OTHER ==
--- NOTE | 2021-11-18 06:03 | US ---
EXAMINATION TYPE: Transabdominal DATE OF EXAM: 11/17/2021 4:27 PM COMPARISON: Prior ultrasound October 14, 2021 CLINICAL HISTORY: Z36.89 CONFIRM GESTATIONAL AGE AND VIABILITY. Confirm viability EXAM PERFORMED: Transabdominal (TA) EXAM MEASUREMENTS: GESTATIONAL AGE / DATING Physician Established: Not yet established Dates by LMP: (10 weeks/4 days) EDC: 06/11/2022 Dates by First Scan: Too early to date on first scan Dates by Current Scan for: (9 weeks/5 days) EDC: 06/17/2022 MATERNAL ANATOMY Uterus: 14.0 x 6.3 x 7.7 cm Right Ovary: 2.8 x 1.9 x 2.5 cm Left Ovary: 2.9 x 1.8 x 2.5 cm Post CDS / Adnexa: wnl Presence of free fluid: No Presence of corpus luteal cyst: Left Ovary= 1.4 x 1.2 x 1.4 cm Presence of subchorionic bleed: Small bleed right of gestational sac= 1.5 x 1.3 x 1.8 cm GESTATION / SURVEY CRL: 2.9 cm (9 weeks/5 days) MSD: wnl Heart Rate: 166 bpm Rhythm: Normal IUP: Viable IUP Their is now confirmation of single live intrauterine gestation as gestational sac and pole are identified. The yolk sac not clearly seen on current study. Adjacent to the right aspect of the gest ational sac there is heterogeneous small nonsimple focal fluid collection measuring 1.9 x 1.3 x 1.5 c m suspicious for small implantation bleed versus subchorionic hemorrhage. No free fluid in pelvic cul -de-sac. Both ovaries identified. Left ovary has a 1.4 cm peripheral thin-walled cyst which is for corpus lute al cyst. IMPRESSION: As above. Single live intrauterine gestation now confirmed. Mean crown-rump length 2.9 cm corresponding to 9 week 5 day old fetus
== END | disposition home or self-care (01) ==
LOC: RADUSWWP 16:13
PROVIDERS: ATTEND Obstetrics & Gynecology
DX: Z36.89 Encounter for other specified antenatal screening (principal)
CPT/HCPCS: 76801

== ENCOUNTER 2022-03-06 14:50 | Outpatient (CLI) | payer OTHER ==
[2022-03-06] MEDS ORDERED: ONDANSETRON 4 MG/2 ML VIAL IVP STA (15:54)
[2022-03-06] MEDS ORDERED: LACTATED RINGERS 1,000 ML IV SCH (16:00)
[2022-03-06 16:12] LABS: Basophils % (A) 0 %; Eosinophils # (A) 0.1 k/uL (0-0.7); Eosinophils % (A) 1 %; HCT 32.7 % (34.0-46.0); HGB 11.6 gm/dL (11.4-16.0); Lymphocytes # (A) 1.1 k/uL (1.0-4.8); Lymphocytes % (A) 13 %; MCH 30.3 pg (25.0-35.0); MCHC 35.6 g/dL (31.0-37.0); MCV 85.2 fL (80.0-100.0); Mean Platelet Volume 7.8; Monocytes # (A) 0.5 k/uL (0-1.0); Monocytes % (A) 6 %; Neutrophils # (A) 6.5 k/uL (1.3-7.7); Neutrophils % (A) 78 %; Platelet Count 288 k/uL (150-450); RBC 3.84 m/uL (3.80-5.40); RDW 13.6 % (11.5-15.5); WBC 8.3 k/uL (3.8-10.6)
[2022-03-06 16:21] LABS: Appearance,Urine Clear (Clear); Bilirubin,Urine Negative (Negative); Blood,Urine Negative (Negative); Color,Urine Light Yellow; Glucose,Urine (UA) Negative (Negative); Ketones,Urine Negative (Negative); Leukocyte Esterase,Urine Negative (Negative); Nitrite,Urine Negative (Negative); Protein,Urine Negative (Negative); Specific Gravity,Urine 1.007 (1.001-1.035); Urobilinogen,Urine <2.0 mg/dL (<2.0)
[2022-03-06 18:40] VITALS: BP 143/76; PULSE 95; RESP 20; TEMP 97.6
--- NOTE | 2022-03-17 21:51 | P.MSEPDOC ---
Presenting Problems - Arrival Data Date of Arrival on Unit: 03/06/22 Time of Arrival on Unit: 14:50 Mode of Transport: Ambulatory - Complaint OB-Reason for Admission/Chief Complaint: Acute Nausea/Vomiting Comment: pt presents with N/V, body aches, fatigue, stomach pain since last Monday Medical History - Information : 3 Para: 1 Term: 1 : 0 Abortions: Spontaneous or Elective: 1 Number of Living Children: 1 - Gestational Age Gestational Age by OSMANY (wks/days): 25 Weeks and 2 Days - History Comment: type 2 diabetes Review of Systems - Review of Systems Constitutional: No problems Breast: No problems ENT: No problems Cardiovascular: No problems Respiratory: No problems Gastrointestinal: No problems Genitourinary: No problems Musculoskeletal: No problems Neurological: No problems Skin: No problems Vital Signs - Temperature Temperature: 97.6 F Temperature Source: Temporal Artery Scan - Pulse Right Brachial Pulse Rate: 95 Pulse Assessment Method: Automatic Cuff - Respirations Respiratory Rate: 20 Oxygen Delivery Method: Room Air O2 Sat by Pulse Oximetry: 100 - Blood Pressure Right Arm Blood Pressure: 143/76 Blood Pressure Mean: 98 Blood Pressure Source: Automatic Cuff Medical Screen Scoring - Assessment - Baby A Baseline FHR: 140 Heart Rate - NICHD Category: Category I (Normal) Physician Notification - Physician Notified Physician Notified Date: 03/06/22 Physician Notified Time: 15:45 Physician: Kenya Sutherland Order Received: Yes - Notification Comment Comment: IVF bolus given, cbc, ua, and cephid swab all wnl and negative, FHT's cat 1, no contractions, abd soft, pt discharged and will follow up with Dr. Miller in the office on 03/25 at scheduled appt, and with MFM on 04/01, Maternal Triage Index - Maternal Triage Index Presenting for scheduled procedure w/no complaint: No - Stat/Priority 1 Stat Priority 1: No - Urgent/Priority 2 Urgent Priority 2: No - Prompt/Priority 3 Prompt Priority 3: No - Non-Urgent/Priority 4 Non-Urgent Priority 4: Yes Criteria Met for Priority 4: pt presents with N/V, body aches, fatigue, stomach pain since last Monday Disposition - Disposition OB Disposition: Triage, Discharge to home, Written follow up instructions reviewed Discharge Date: 03/06/22 Discharge Time: 17:30 I agree with the RN Medical Screening Exam: Yes Case reviewed; plan agreed upon as documented in EMR&OBIX.: Yes Diagnosis: VOMITING OF , UNSPECIFIED
== END 2022-03-06 17:30 | disposition home or self-care (01) ==
LOC: FBPOP 14:50
PROVIDERS: ATTEND Obstetrics & Gynecology
DX: O26.892 Other specified pregnancy related conditions, second trimester (principal); Z3A.25 25 weeks gestation of pregnancy; R11.10 Vomiting, unspecified; Z88.2 Allergy status to sulfonamides; F17.200 Nicotine dependence, unspecified, uncomplicated; Z91.038 Other insect allergy status
CPT/HCPCS: 36415; 81003; 85025; 87636; 96360; 99214

== ENCOUNTER 2022-05-27 19:10 | Inpatient (IN) | payer OTHER ==
[2022-05-27 21:26] LABS: Basophils % (A) 0 %; Eosinophils # (A) 0.1 k/uL (0-0.7); Eosinophils % (A) 1 %; HCT 36.3 % (34.0-46.0); HGB 11.9 gm/dL (11.4-16.0); Lymphocytes # (A) 2.1 k/uL (1.0-4.8); Lymphocytes % (A) 22 %; MCH 27.4 pg (25.0-35.0); MCHC 32.6 g/dL (31.0-37.0); MCV 83.8 fL (80.0-100.0); Mean Platelet Volume 8.7; Monocytes # (A) 0.6 k/uL (0-1.0); Monocytes % (A) 6 %; Neutrophils # (A) 6.6 k/uL (1.3-7.7); Neutrophils % (A) 69 %; Platelet Count 296 k/uL (150-450); Poikilocytosis Slight; RBC 4.33 m/uL (3.80-5.40); RDW 14.6 % (11.5-15.5); WBC 9.6 k/uL (3.8-10.6)
[2022-05-27 21:37] LABS: INR 0.9 (<1.2); Partial Thromboplastin Time 22.8 sec (22.0-30.0); Prothrombin Time 9.4 sec (9.0-12.0)
[2022-05-27 21:38] LABS: Appearance,Urine Clear (Clear); Bacteria,Urine Few /hpf; Bilirubin,Urine Negative (Negative); Blood,Urine Negative (Negative); Color,Urine Yellow; Glucose,Urine (UA) 1+ (Negative); Hyaline Casts,Urine 1 /lpf (0-2); Ketones,Urine 1+ (Negative); Leukocyte Esterase,Urine Small (Negative); Mucus,Urine Rare /hpf; Nitrite,Urine Negative (Negative); Protein,Urine Negative (Negative); RBC,Urine 1 /hpf (0-5); Specific Gravity,Urine 1.021 (1.001-1.035); Squamous Epithelial Cell,Urine 7 /hpf (0-4); Urobilinogen,Urine <2.0 mg/dL (<2.0); WBC,Urine 11 /hpf (0-5)
[2022-05-27 21:44] LABS: ALT 17 U/L (4-34); AST 20 U/L (14-36); African American GFR (CKD) >90 (>60 ml/min/1.73 sqM); Blood Urea Nitrogen 12 mg/dL (7-17); LDH 421 U/L (313-618); Magnesium 1.5 mg/dL (1.6-2.3); Non-African American GFR(CKD) >90 (>60 ml/min/1.73 sqM)
[2022-05-27 22:03] LABS: Creatinine,Urine Random 78.4 mg/dL; Protein/Creatinine Ratio,Urine 0.179
[2022-05-27 22:21] LABS: Glucose,Whole Blood 110 mg/dL (70-110)
[2022-05-27] MEDS ORDERED: METHYLERGONOVINE 0.2 MG/ML 1 ML AMP IM PRN (22:31)
[2022-05-27] MEDS ORDERED: TERBUTALINE 1 MG/ML VIAL SQ PRN (22:31)
[2022-05-27] MEDS ORDERED: CARBOPROST TROMETHAMINE 250 MCG/ML 1 ML AMP IM PRN (22:31)
[2022-05-27] MEDS ORDERED: AMPICILLIN 2,000 MG in SODIUM CHLORIDE 0.9% 100 ML IVPB STA (22:31)
[2022-05-27] MEDS ORDERED: OXYTOCIN 10 UNIT/ML 1 ML VIAL IM PRN (22:31)
[2022-05-27] MEDS ORDERED: miSOPROStoL 200 MCG TAB PO PRN (22:31)
[2022-05-27] MEDS ORDERED: TRANEXAMIC ACID IN NACL,ISO-OS 1,000 MG in EMPTY BAG 1 BAG IV PRN (22:31)
[2022-05-27] MEDS ORDERED: LIDOCAINE 0.5% (PF) 5 MG/ML (50 ML SDV) SQ PRN (22:31)
[2022-05-27] MEDS ORDERED: LIDOCAINE 1% (10MG/ML) FOR IV START INTRADERMA PRN (22:31)
[2022-05-27] MEDS ORDERED: OXYTOCIN 30 UNITS/500 ML NS 30 UNIT in SALINE 1 500ML.BAG IV SCH (22:45)
[2022-05-27] MEDS: LACTATED RINGERS 1,000 ML IV SCH (23:04)
--- NOTE | 2022-05-27 23:04 | P.HPOB ---
History of Present Illness H&P Date: 05/27/22 Chief Complaint: Contractions This is a 26-year-old female 3 para 1 with an estimated date of confinement of 06/17/2022, estimated gestational age of 37-0/7 weeks who presented with complaints of contractions that been going on for 3 days. She states she does feel movement but it is sometimes slower. course is complicated by type 2 diabetes on insulin. She has been seeing maternal medicine throughout her . She was observed in triage and initially came in with elevated blood pressures in the severe category. Her blood pressures did come down with rest and preeclamptic labs were all negative. She has had a mild headache but no blurry vision or epigastric pain. In triage her heart tones show minimal to moderate variability, reactive, but some late decelerations that are not regular. In light of all these findings, the de cision is made to admit and induce labor. Her last growth ultrasound on 05/02/2022 showed in a breech presentation with polyhydramnios an PAM of 26.5. labs: Hepatitis B surface antigen-negative RPR-nonreactive Rubella-immune Blood type-O+ Antibody screen-negative HIV-nonreactive Hemoglobin-13.9 Random glucose was 349 Hemoglobin A1c in October 2021 was 11.1 Pap smear-within normal limits GC/Chlamydia/Trichomonas-negative Maternity 21-negative Group B streptococcus was positive Obstetrical history: . History of 1 vaginal delivery at term. Gynecologic history: No history of sexual transmitted diseases. Review of Systems Constitutional: Denies chills, Denies fever Eyes: denies blurred vision, denies pain Ears, nose, mouth and throat: Reports headache (Mild), Denies sore throat Cardiovascular: Denies chest pain, Denies shortness of breath Respiratory: Denies cough Gastrointestinal: Reports abdominal pain (Contractions), Denies nausea, Denies vomiting Genitourinary: Reports pelvic pain, Reports Musculoskeletal: Reports low back pain Integumentary: Denies pruritus, Denies rash Neurological: Denies numbness, Denies weakness Psychiatric: Reports anxiety, Reports depression, Reports difficulty concentrating Past Medical History Past Medical History: Diabetes Mellitus Additional Past Medical History / Comment(s): KIDNEY STONES, history of gestational diabetes with her last polycystic ovarian syndrome History of Any Multi-Drug Resistant Organisms: MRSA Date of last positivie culture/infection: 2012 MDRO Source:: BUTTOCK/BREAST Past Surgical History: Cholecystectomy, Hernia Repair Additional Past Surgical History / Comment(s): Left inguinal hernia repair, Past Anesthesia/Blood Transfusion Reactions: No Reported Reaction Past Psychological History: ADD/ADHD, Anxiety, Bipolar, Depression Smoking Status: Former smoker Past Alcohol Use History: Rare Past Drug Use History: None Reported - Past Family History Mother Family Medical History: No Reported History Additional Family Medical History / Comment(s): Mother is alive at age 41 with no major medical problems. Patient has 2 half-brothers and one half-sister with no major medical problems. Father Family Medical History: No Reported History Additional Family Medical History / Comment(s): Father is alive at age 46 with history of celiac disease Medications and Allergies Home Medications Medication Instructions Recorded Confirmed Type Aspirin [Adult Low Dose Aspirin EC] 81 mg PO DAILY 03/06/22 05/27/22 History INSULIN LISPRO (humaLOG) [humaLOG] 7 units SQ ACHS 03/06/22 05/27/22 History Insulin Glargine,Hum.rec.anlog 51 units SQ DAILY 03/06/22 05/27/22 History [Lantus Solostar Pen] Pnv No.175/Iron Fum/Folic Acid 1 capsule PO DAILY 03/06/22 05/27/22 History [ Complete Tablet] Allergies Allergy/AdvReac Type Severity Reaction Status Date / Time sulfamethoxazole Allergy Rash/Hives Verified 05/16/22 12:31 [From Bactrim] trimethoprim [From Bactrim] Allergy Rash/Hives Verified 05/16/22 12:31 mosquitos Allergy Rash/Hives Uncoded 05/16/22 12:31 Exam Osteopathic Statement: *. No significant issues noted on an osteopathic structural exam other than those noted in the History and Physical/Consult. Intake and Output 05/27/22 05/27/22 05/27/22 06:59 14:59 22:59 Other: Weight 94.801 kg Gen.: Well-developed well-nourished obese female in no acute distress HEENT: Within normal limits Heart: Regular rate and rhythm Lungs: Clear to auscultation bilaterally Abdomen: Cervix: Initially in triage was 1 cm/50%/-2 station. Currently she is 3-4 cm/70%/-2 station. Artificial rupture of membranes is carried out with a large amount of clear fluid noted. Patient was confirmed vertex with bedside ultrasound prior to rupture of membranes. heart tones: 140s with moderate variability, occasional late deceleration, and occasional accelerations. Contractions: Every 3-4 minutes. Extremities: Negative Homans Results Result Diagrams: 05/27/22 21:00 05/27/22 21:00 Abnormal Lab Results - Last 24 Hours (Table) 05/27/22 05/27/22 05/27/22 Range/Units 21:00 21:00 21:00 Fibrinogen 513 H (200-500) mg/dL Creatinine 0.33 L (0.52-1.04) mg/dL Magnesium 1.5 L (1.6-2.3) mg/dL Urine Glucose (UA) 1+ H (Negative) Urine Ketones 1+ H (Negative) Ur Leukocyte Esterase Small H (Negative) Urine WBC 11 H (0-5) /hpf Ur Squamous Epith Cells 7 H (0-4) /hpf Urine Bacteria Few H (None) /hpf Urine Mucus Rare H (None) /hpf Assessment and Plan (1) 37 weeks gestation of Current Visit: Yes Status: Acute Code(s): Z3A.37 - 37 WEEKS GESTATION OF SNOMED Code(s): 28157567 (2) Type 2 diabetes mellitus affecting in third trimester, antepartum Current Visit: Yes Status: Acute Code(s): O24.113 - PRE-EXISTING TYPE 2 DIABETES, IN , THIRD TRIMESTER SNOMED Code(s): 839074081 (3) Gestational hypertension Current Visit: Yes Status: Acute Code(s): O13.9 - GESTATIONAL HTN W/O SIGNIFICANT PROTEINURIA, UNSP TRIMESTER SNOMED Code(s): 01234167 (4) Group B Streptococcus carrier, +RV culture, currently Current Visit: Yes Status: Acute Code(s): O99.820 - STREPTOCOCCUS B CARRIER STATE COMPLICATING SNOMED Code(s): 2064801709905 Plan: Plan is admission for gestational hypertension and type 2 diabetes on insulin with occasional late decelerations on heart tracings. Will start induction of labor and artificial rupture membranes. Epidural anesthesia if desired. Will monitor heart tones closely. Will observe blood sugars while in labor. Patient is aware that if heart tones show repetitive late decelerations or any other concerning pattern, we'll proceed with delivery. We'll start antibiotic prophylaxis secondary to group B streptococcus.
[2022-05-28] MEDS ORDERED: fentaNYL (PF) 50 MCG/ML 5 ML AMP ONE (01:06)
[2022-05-28] MEDS ORDERED: SODIUM CHLORIDE 0.9% 100 ML BAG ONE ×2 (01:06→02:59)
[2022-05-28] MEDS ORDERED: ROPIVACAINE 5 MG/ML 20 ML AMPULE ONE (01:06)
[2022-05-28] MEDS ORDERED: AMPICILLIN 1,000 MG in SODIUM CHLORIDE 0.9% 50 ML IVPB SCH (02:45)
[2022-05-28] MEDS ORDERED: CITRIC ACID-SODIUM CITRATE 15 ML CUP PO ONE (02:45)
[2022-05-28] MEDS ORDERED: ceFAZolin 1,000 MG VIAL ONE (02:59)
[2022-05-28] MEDS ORDERED: MORPHINE SULFATE (PF) 0.3 MG/0.3 ML SYR ONE (02:59)
[2022-05-28] MEDS ORDERED: NALBUPHINE 10 MG/ML (1 ML AMP) ONE (02:59)
[2022-05-28] MEDS ORDERED: OXYTOCIN 30 UNITS/500 ML NS BAG IV ONE (02:59)
[2022-05-28] MEDS ORDERED: ONDANSETRON 4 MG/2 ML VIAL ONE (02:59)
[2022-05-28] MEDS ORDERED: fentaNYL (PF) 50 MCG/ML 2 ML AMP ONE (02:59)
[2022-05-28] MEDS ORDERED: KETOROLAC 30 MG/ML 1 ML VIAL ONE (02:59)
[2022-05-28] MEDS ORDERED: diphenhydrAMINE 50 MG/ML 1 ML VIAL ONE (02:59)
[2022-05-28] MEDS ORDERED: NALOXONE 0.4 MG/ML 1 ML VIAL IV PRN ×2 (03:29→05:37)
[2022-05-28] MEDS ORDERED: ONDANSETRON 4 MG/2 ML VIAL IVP PRN ×2 (03:29→05:37)
[2022-05-28] MEDS ORDERED: NALBUPHINE 10 MG/ML (1 ML AMP) IV PRN (03:29)
[2022-05-28] MEDS ORDERED: HYDROmorphone 0.5 MG/0.5 ML SYRINGE IVP PRN (03:29)
--- NOTE | 2022-05-28 04:09 | P.OP ---
Date of Procedure: 05/28/22 Preoperative Diagnosis: 1. Intrauterine at 37 and one sevenths weeks. 2. Category 3 heart tones. 3. Type II diabetic. Postoperative Diagnosis: Same Procedure(s) Performed: Primary low transverse section Anesthesia: epidural Surgeon: Kenya Sutherland Reel System Operator #1: Jeniffer Mason Estimated Blood Loss (ml): 800 Pathology: other (Placenta) Condition: stable Disposition: floor Indications for Procedure: This is a 26-year-old female 3 para 1 at 37 and one sevenths weeks who presented with complaints of contractions. She was admitted and started on oxytocin induction of labor. Artificial rupture membranes was carried out with clear fluid noted. Upon admission she did have occasional late decelerations but good variability with accelerations on admission. She progressed to minimal variability with repetitive late decelerations despite position changes and interventions. A patient centered huddle including the patient her and nursing staff occurred and the need for urgent section was expressed. Patient and her family were in agreement with proceeding with urgent section due to category 3 heart tones. All her questions were answered. I have discussed the risks, benefits, and alternative therapies for the above- mentioned procedure and for both sedation/anesthesia as well as necessary blood products administration, if indicated, as they pertain to this patient. The patient has indicated her understanding and acceptance of the risks and procedures discussed. Operative Findings: A viable female is noted in the vertex presentation with scores of 7 at 1 minute and 8 at 5 minutes and weight of 8 lbs. 12 oz. normal uterus tubes and ovaries are noted. Description of Procedure: The patient is taken to the operating room where she is placed in the dorsal supine position with leftward tilt after epidural anesthesia is bolused. She is prepped and draped in the normal sterile fashion. Skin was tested and found to be adequately anesthetized. A Pfannenstiel skin incision was made with a scalpel. A second knife was used to carry the incision down to the underlying layer of fascia. The fascia was nicked in the midline with a scalpel and then extended laterally bilaterally with Jacobo scissors. The anterior lip of the fascia was grasped with 2 Samreen clamps and then dissected off the underlying rectus muscle in the midline with Jacobo scissors. The inferior aspect of the fascial incision was grasped with 2 Samreen clamps and dissected off the underlying rectus muscle and the midline with Jacobo scissors. Next the peritoneum layer was tented up with 2 hemostats and then entered sharply with the scalpel. The incision is extended superiorly and inferiorly with Metzenbaum scissors. Next a DeLee retractor is placed. The vesicouterine peritoneum is entered sharply with Metzenbaum scissors and extended laterally bilaterally with Metzenbaum scissors and then the bladder flap is pushed inferiorly. The lower uterine segment is incised in transverse fashion with the scalpel and then bluntly entered with a hemostat. Clear fluid is noted. The incision was then extended laterally bilaterally with 2 fingers. Next the 's head is delivered through the incision. Nose and mouth are bulb suctioned. The remainder of the infant is easily delivered and placed on mother's abdomen. Cord is clamped and cut. is taken to warmer by nursing staff. Uterine fundus is gently massaged and placenta is delivered manually. Uterus is exteriorized and cleared of all clots and debris. Uterine incision is closed with 0 Vicryl suture in a running locked fashion. A second layer of 0 Vicryl suture is used in a running fashion for hemostasis. Once adequate hemostasis as assured, the vesicouterine peritoneum is reapproximated with 2-0 Vicryl suture in a running fashion. Posterior cul-de-sac is suctioned of all clots and debris. Uterus is returned to the abdomen. Incision is noted to be hemostatic. Peritoneal layer is closed with 0 Vicryl suture in a running fashion. Muscle layer is reapproximated with 0 Vicryl suture in interrupted fashion. Fascia layer is then closed with 0 PDS suture with 2 sutures meeting in the midline and the knots buried in either side and in the midline. The subcutaneous tissue was then closed with 2-0 Vicryl suture. Skin layer was then closed with marika. All sponge and needle counts are correct. The patient is taken to recovery room in stable condition.
[2022-05-28] MEDS: LACTATED RINGERS 1,000 ML IV SCH ×4 (04:15→17:08)
[2022-05-28 04:58] LABS: Glucose,Whole Blood 156 mg/dL (70-110)
[2022-05-28] MEDS ORDERED: LANOLIN CREAM 5 GM TUBE TOPICAL PRN (05:37)
[2022-05-28] MEDS ORDERED: diphenhydrAMINE 50 MG/ML 1 ML VIAL IVP PRN ×2 (05:37)
[2022-05-28] MEDS ORDERED: ZOLPIDEM 5 MG TAB PO PRN (05:37)
[2022-05-28] MEDS ORDERED: METOCLOPRAMIDE 5 MG/ML 2 ML VIAL IVP PRN (05:37)
[2022-05-28] MEDS ORDERED: HYDROmorphone PCA 10 MG/50 ML BAG IV PRN (05:37)
[2022-05-28] MEDS ORDERED: HYDROmorphone 1 MG/ML 1 ML SYRINGE IVP PRN (05:37)
[2022-05-28] MEDS ORDERED: diphenhydrAMINE 25 MG CAP PO PRN (05:37)
[2022-05-28 07:37] LABS: Glucose,Whole Blood 134 mg/dL (70-110)
[2022-05-28] MEDS ORDERED: DEXTROSE 50% SYRINGE 50 ML IVP PRN ×2 (07:38)
[2022-05-28] MEDS: SENNOSIDES-DOCUSATE SODIUM 1 EACH TAB PO SCH (07:55)
[2022-05-28] MEDS: ACETAMINOPHEN TAB 500 MG TAB PO SCH ×2 (07:55→15:19)
[2022-05-28] MEDS: INSULIN DETEMIR (LEVEMIR) 100 UNIT/ML SYR SQ SCH ×3 (08:46→20:29)
--- NOTE | 2022-05-28 11:57 | P.CONS ---
History of Present Illness - Reason for Consult Consult date: 05/28/22 Medical Management of Diabetes Requesting physician: Kenya Sutherland - History of Present Illness History of Presenting Illness: Patient is a very pleasant 26-year-old female with a past medical history of insulin-dependent diabetes mellitus type 2 and PCOS. She is currently status post delivery of her second child, a healthy baby girl this morning via section completed by Dr. Sutherland. We have been consulted for medical management of patient's hyperglycemia secondary to her known insulin-dependent diabetes mellitus type 2. Patient currently on clear liquid diet status post delivery and blood glucose levels are 156. RN reports that she is advancing patient's diet at this time to regular carb consistent. Patient seen and fully evaluated at the bedside. Patient sitting up in wheelchair and reports feeling great. Reports mild postoperative discomfort status post her recent section, but otherwise denies any complaints including headache, lightheadedness, dizziness, chest pain, palpitations, shortness of breath, nausea, or experiencing any numbness/tingling/weakness in her extremities. Patient reports that she has been a type II diabetic for years since developing gestational diabetes during the with her first child in 2014 and continued to have difficulties managing her blood glucose levels following. Review of systems: Pertinent positives and negatives as discussed in HPI, a complete review of systems was performed and all other systems are negative. Physical exam: Vital signs reviewed and stable. General: Nontoxic, no distress and appears stated age. Derm: Skin warm and dry, normal coloration for ethnicity. Head: Atraumatic, normocephalic and symmetric. Eyes: EOMs intact, no lid lag, and anicteric sclera Mouth: no lip lesions, mucus membranes moist Cardiovascular: regular rate and rhythm with normal S1S2, no murmur, positive posterior tibial pulses bilaterally, and cap refill < 2 seconds. Lungs: Respirations even, regular, and unlabored on room air. Lungs CTA bilaterally, no rhonchi, no rales, no wheezing, and no accessory muscle usage. Abdominal: soft, boggy distended abdomen status post delivery. [place] intact. Ext: ROM intact. No gross muscle atrophy, no edema, no contractures Neuro: Speech clear, face symmetrical and CN II-XII grossly intact with no noted focal neuro deficits Psych: Alert and oriented to person, place, time, and situation. Appropriate and pleasant affect. Assessment and Plan of Care: Insulin-dependent diabetes mellitus with hyperglycemia -Labs completed and reviewed. CBC and BMP were unremarkable. [id number] glucose levels have been elevated at 156, 134, and 147. Hemoglobin A1c 8.1%. Urinalysis was a contaminated specimen positive for glucose and ketones, not concerning for infection at this time. -Patient placed on glycemic protocol and order [id number] glucose 5 times daily, with each meal, at bedtime, and at 2 AM. In addition patient placed on NovoLog sliding scale and order was placed to resume her Levemir 51 units nightly. -Recommend continuing carb consistent diet. Hypomagnesemia -Labs reviewed, magnesium low at 1.5. Order is placed for magnesium oxide 400 mg by mouth 1 dose. Order also placed to repeat magnesium level with a.m. labs to monitor for resolution of Hypomagnesemia. 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 Thank you for allowing us to participate in the care of this pleasant patient. Do not hesitate to contact us with questions. [facility] can [facility] all hours of the day at [phone] or via [employer] Patient was seen independently by Nurse Practitioner. This document was prepared using [employer] dictation software. Please allow for errors in commercial lender while rare they do occur. I reviewed the documentation as provided by the CLEMENTE above, who is the original author of this note. I agree with the documented assessment and plan, with the following changes: none Past Medical History Past Medical History: Diabetes Mellitus Additional Past Medical History / Comment(s): KIDNEY STONES, history of gestational diabetes with her last , Type 2 diabetes, polycystic ovarian syndrome History of Any Multi-Drug Resistant Organisms: MRSA Year Discovered:: 2012 MDRO Source:: BUTTOCK/BREAST Past Surgical History: Cholecystectomy, Hernia Repair Additional Past Surgical History / Comment(s): Left inguinal hernia repair, Past Anesthesia/Blood Transfusion Reactions: No Reported Reaction Past Psychological History: ADD/ADHD, Anxiety, Bipolar, Depression Smoking Status: Former smoker Past Alcohol Use History: Rare Additional Past Alcohol Use History / Comment(s): Patient is a smoker of one pack per day since she was 15 years of age. She states she drinks alcohol occasionally. She has used marijuana in the past but denies any use at this time. Past Drug Use History: None Reported - Past Family History Mother Family Medical History: No Reported History Additional Family Medical History / Comment(s): Mother is alive at age 41 with no major medical problems. Patient has 2 half-brothers and one half-sister with no major medical problems. Father Family Medical History: No Reported History Additional Family Medical History / Comment(s): Father is alive at age 46 with history of celiac disease Medications and Allergies Home Medications Medication Instructions Recorded Confirmed Type Aspirin [Adult Low Dose Aspirin EC] 81 mg PO DAILY 03/06/22 05/27/22 History INSULIN LISPRO (humaLOG) [humaLOG] 7 units SQ ACHS 03/06/22 05/27/22 History Insulin Glargine,Hum.rec.anlog 51 units SQ DAILY 03/06/22 05/27/22 History [Lantus Solostar Pen] Pnv No.175/Iron Fum/Folic Acid 1 capsule PO DAILY 03/06/22 05/27/22 History [ Complete Tablet] Allergies Allergy/AdvReac Type Severity Reaction Status Date / Time sulfamethoxazole Allergy Rash/Hives Verified 05/16/22 12:31 [From Bactrim] trimethoprim [From Bactrim] Allergy Rash/Hives Verified 05/16/22 12:31 mosquitos Allergy Rash/Hives Uncoded 05/16/22 12:31 Physical Exam Osteopathic Statement: *. No significant issues noted on an osteopathic structural exam other than those noted in the History and Physical/Consult. Vitals: Vital Signs Temp Pulse Resp BP Pulse Ox 05/28/22 07:53 97 05/28/22 07:51 89 16 05/28/22 07:50 97.7 F 89 16 123/72 97 05/28/22 06:29 77 16 05/28/22 05:46 77 18 140/78 100 05/28/22 05:16 98.0 F 66 18 137/91 100 05/28/22 04:46 97.8 F 79 18 138/88 100 05/28/22 04:31 70 16 135/81 98 05/28/22 04:29 18 100 05/28/22 04:16 98 16 131/74 99 05/28/22 04:01 97.8 F 76 16 136/87 100 05/28/22 03:46 72 16 141/86 100 05/28/22 03:29 16 100 05/27/22 23:13 83 16 160/83 98 05/27/22 19:12 83 18 160/88 98 Intake and Output 05/27/22 05/28/22 05/28/22 22:59 06:59 14:59 Output Total 1667 50 Balance -1667 -50 Output: Urine 650 50 Estimated Blood Loss 800 Output, Quantitative 217 Blood Loss Other: Voiding Method Indwelling Catheter Indwelling Catheter Weight 94.801 kg 94.801 kg Results CBC & Chem 7: 05/29/22 05:42 05/29/22 05:42 Labs: Abnormal Lab Results - Last 24 Hours (Table) 05/27/22 05/27/22 05/27/22 Range/Units 21:00 21:00 21:00 Fibrinogen 513 H (200-500) mg/dL Creatinine 0.33 L (0.52-1.04) mg/dL POC Glucose (mg/dL) (70-110) mg/dL Magnesium 1.5 L (1.6-2.3) mg/dL Urine Glucose (UA) 1+ H (Negative) Urine Ketones 1+ H (Negative) Ur Leukocyte Esterase Small H (Negative) Urine WBC 11 H (0-5) /hpf Ur Squamous Epith Cells 7 H (0-4) /hpf Urine Bacteria Few H (None) /hpf Urine Mucus Rare H (None) /hpf 05/28/22 05/28/22 Range/Units 04:56 07:35 Fibrinogen (200-500) mg/dL Creatinine (0.52-1.04) mg/dL POC Glucose (mg/dL) 156 H 134 H (70-110) mg/dL Magnesium (1.6-2.3) mg/dL Urine Glucose (UA) (Negative) Urine Ketones (Negative) Ur Leukocyte Esterase (Negative) Urine WBC (0-5) /hpf Ur Squamous Epith Cells (0-4) /hpf Urine Bacteria (None) /hpf Urine Mucus (None) /hpf
[2022-05-28 11:59] LABS: Glucose,Whole Blood 147 mg/dL (70-110)
[2022-05-28] MEDS ORDERED: KETOROLAC 15 MG/ML 1 ML VIAL IVP SCH (12:00)
[2022-05-28] MEDS ORDERED: ACETAMINOPHEN IV (For NPO) 1,000 MG in EMPTY BAG 1 BAG IVPB SCH (12:00)
[2022-05-28] MEDS: diphenhydrAMINE 50 MG CAP PO PRN ×2 (12:09→17:34)
[2022-05-28] MEDS: IBUPROFEN 600 MG TAB PO SCH ×2 (12:09→20:28)
[2022-05-28] MEDS: PRENATAL VIT-IRON-FOLIC ACID 1 EACH TABLET PO SCH (12:33)
[2022-05-28] MEDS: INSULIN ASPART (NovoLOG) 100 UNIT/ML VIAL SQ SCH ×3 (12:35→20:29)
[2022-05-28] MEDS ORDERED: MAGNESIUM OXIDE 400 MG TAB PO STA (12:41)
[2022-05-28 17:05] LABS: Glucose,Whole Blood 270 mg/dL (70-110)
[2022-05-28 19:58] LABS: Glucose,Whole Blood 173 mg/dL (70-110)
[2022-05-28] MEDS ORDERED: INSULIN DETEMIR (LEVEMIR) 100 UNIT/ML SYR SQ SCH (21:00)
[2022-05-29] MEDS: SENNOSIDES-DOCUSATE SODIUM 1 EACH TAB PO SCH ×3 (00:55→20:43)
[2022-05-29] MEDS: ACETAMINOPHEN TAB 500 MG TAB PO SCH ×5 (00:55→20:43)
[2022-05-29] MEDS: IBUPROFEN 600 MG TAB PO SCH ×4 (00:55→20:35)
[2022-05-29 01:07] LABS: Glucose,Whole Blood 167 mg/dL (70-110)
[2022-05-29 06:30] LABS: Basophils % (A) 0 %; Eosinophils # (A) 0.1 k/uL (0-0.7); Eosinophils % (A) 1 %; HCT 26.6 % (34.0-46.0); Lymphocytes # (A) 1.2 k/uL (1.0-4.8); Lymphocytes % (A) 15 %; MCH 28.9 pg (25.0-35.0); MCHC 34.3 g/dL (31.0-37.0); MCV 84.4 fL (80.0-100.0); Mean Platelet Volume 9.3; Monocytes # (A) 0.5 k/uL (0-1.0); Monocytes % (A) 7 %; Neutrophils # (A) 6.1 k/uL (1.3-7.7); Neutrophils % (A) 75 %; Platelet Count 209 k/uL (150-450); RBC 3.16 m/uL (3.80-5.40); RDW 14.8 % (11.5-15.5); WBC 8.1 k/uL (3.8-10.6)
[2022-05-29 06:43] LABS: HGB 9.1 gm/dL (11.4-16.0)
[2022-05-29 06:51] LABS: ALT 15 U/L (4-34); AST 18 U/L (14-36); African American GFR (CKD) >90 (>60 ml/min/1.73 sqM); Albumin 2.7 g/dL (3.5-5.0); Alkaline Phosphatase 74 U/L (38-126); Anion Gap 6 mmol/L; Blood Urea Nitrogen 9 mg/dL (7-17); Calcium 8.1 mg/dL (8.4-10.2); Carbon Dioxide 23 mmol/L (22-30); Chloride 105 mmol/L (98-107); Glucose 185 mg/dL (74-99); Magnesium 1.4 mg/dL (1.6-2.3); Non-African American GFR(CKD) >90 (>60 ml/min/1.73 sqM); Potassium 3.9 mmol/L (3.5-5.1); Sodium 134 mmol/L (137-145); Total Bilirubin 0.2 mg/dL (0.2-1.3); Total Protein 5.4 g/dL (6.3-8.2)
--- NOTE | 2022-05-29 07:13 | P.PN ---
Progress Note - Text Progress Note Date: 05/29/22 Patient doing well. Pain controlled. Ambulating w/o paresthesia or weakness. Pruritis treated. Denies headache. Epidural site clean and dry. POD#1 s/p w/ epidural duramorph - doing well - continue multimodal analgesia
[2022-05-29 07:45] LABS: Glucose,Whole Blood 137 mg/dL (70-110)
[2022-05-29] MEDS: PRENATAL VIT-IRON-FOLIC ACID 1 EACH TABLET PO SCH (07:53)
[2022-05-29] MEDS: INSULIN ASPART (NovoLOG) 100 UNIT/ML VIAL SQ SCH ×4 (07:54→20:59)
--- NOTE | 2022-05-29 10:53 | P.PNOBGPC ---
Subjective - Subjective Principal diagnosis: Status post primary section postoperative day #1 Interval history: Patient is doing okay. She is passing some flatus. She denies bowel movements yet. She is urinating without difficulty. Pain is fairly well controlled. She is having some pain on the right side of her abdomen above the incision and is not sure if it is gas. She has been using a belly band. Baby is in level I nursery. Patient sugars are trending downward with insulin. She has been seen by medicine who is adjusting her insulin. Patient reports: Reports appetite normal, Reports voiding normally, Reports pain well controlled, Reports ambulating normally : other (In level I nursery) Objective - Vital Signs Latest vital signs: Vital Signs Temp Pulse Resp BP Pulse Ox 05/29/22 07:33 98 F 86 16 119/72 98 05/29/22 04:00 98.3 F 89 16 134/79 99 05/29/22 00:00 97.8 F 97 18 124/70 97 05/28/22 20:00 98.2 F 92 18 117/73 97 05/28/22 17:53 16 05/28/22 15:47 18 05/28/22 15:46 98.1 F 102 H 18 115/79 98 05/28/22 14:00 16 05/28/22 12:00 97.8 F 102 H 16 135/84 98 05/28/22 10:00 16 Intake and Output 05/28/22 05/29/22 05/29/22 21:59 06:59 14:59 Intake Total Output Total Balance Intake: Oral Output: Urine Other: Voiding Method # Voids - Exam Extremities: Present: normal. Absent: tenderness, edema Abdomen: Present: normal appearance, soft (Positive bowel sounds 4). Absent: distention, tenderness Incision: Present: normal, dry, intact Uterus: Present: normal, firm. Absent: tenderness - Labs Labs: Abnormal Lab Results - Last 24 Hours (Table) 05/28/22 05/28/22 05/28/22 Range/Units 11:57 17:04 19:55 RBC (3.80-5.40) m/uL Hgb (11.4-16.0) gm/dL Hct (34.0-46.0) % Sodium (137-145) mmol/L Creatinine (0.52-1.04) mg/dL Glucose (74-99) mg/dL POC Glucose (mg/dL) 147 H 270 H 173 H (70-110) mg/dL Calcium (8.4-10.2) mg/dL Magnesium (1.6-2.3) mg/dL Total Protein (6.3-8.2) g/dL Albumin (3.5-5.0) g/dL 05/29/22 05/29/22 05/29/22 Range/Units 01:05 05:42 05:42 RBC 3.16 L (3.80-5.40) m/uL Hgb 9.1 L D (11.4-16.0) gm/dL Hct 26.6 L (34.0-46.0) % Sodium 134 L (137-145) mmol/L Creatinine 0.38 L (0.52-1.04) mg/dL Glucose 185 H (74-99) mg/dL POC Glucose (mg/dL) 167 H (70-110) mg/dL Calcium 8.1 L (8.4-10.2) mg/dL Magnesium 1.4 L (1.6-2.3) mg/dL Total Protein 5.4 L (6.3-8.2) g/dL Albumin 2.7 L (3.5-5.0) g/dL 05/29/22 Range/Units 07:39 RBC (3.80-5.40) m/uL Hgb (11.4-16.0) gm/dL Hct (34.0-46.0) % Sodium (137-145) mmol/L Creatinine (0.52-1.04) mg/dL Glucose (74-99) mg/dL POC Glucose (mg/dL) 137 H (70-110) mg/dL Calcium (8.4-10.2) mg/dL Magnesium (1.6-2.3) mg/dL Total Protein (6.3-8.2) g/dL Albumin (3.5-5.0) g/dL Assessment and Plan Assessment: Status post primary low transverse section postoperative day #1 Type 2 diabetes-on insulin (1) 37 weeks gestation of Current Visit: Yes Status: Acute Code(s): Z3A.37 - 37 WEEKS GESTATION OF SNOMED Code(s): 12687136 (2) Type 2 diabetes mellitus affecting in third trimester, antepartum Current Visit: Yes Status: Acute Code(s): O24.113 - PRE-EXISTING TYPE 2 DIABETES, IN , THIRD TRIMESTER SNOMED Code(s): 342928057 (3) Gestational hypertension Current Visit: Yes Status: Acute Code(s): O13.9 - GESTATIONAL HTN W/O SIGNIFICANT PROTEINURIA, UNSP TRIMESTER SNOMED Code(s): 64682155 (4) Group B Streptococcus carrier, +RV culture, currently Current Visit: Yes Status: Acute Code(s): O99.820 - STREPTOCOCCUS B CARRIER STATE COMPLICATING SNOMED Code(s): 9354756164807 Plan: Patient encouraged position changes and ambulation. Icepack if needed on the incision. On oral pain medications now. We'll continue working on adjusting her insulin. Patient states she does not have a family physician but knows she will need 1 when she is discharged for management of her diabetes. We'll see if case packer can assist.
[2022-05-29 12:08] LABS: Glucose,Whole Blood 174 mg/dL (70-110)
--- NOTE | 2022-05-29 12:13 | P.PN ---
Subjective Progress Note Date: 05/29/22 Hospital course Patient is a very pleasant 26-year-old female with a past medical history of insulin-dependent diabetes mellitus type 2 and PCOS. She is currently status post delivery of her second child, a healthy baby girl this morning via section on 05/28/[address] Sutherland. We were consulted for medical management of patient's hyperglycemia secondary to her known insulin-dependent diabetes mellitus type 2. Physical exam: Patient seen and fully evaluated at bedside. Patient appears to be doing well. She reports mild postoperative abdominal pain and uterine cramping. Patient denies having any other complaints or concerns at this time including headache, lightheadedness, dizziness, chest pain, palpitations, shortness of breath. Patient has been drinking Gatorade and vitamin shah and blood glucose levels have been running slightly elevated. Patient educated on the excess carbohydrat es these drinks contained and encouraged to follow carb consistent diet. Blood glucose levels this morning 137. No changes being made to medication regimen at this time, we will continue with NovoLog sliding scale and Levemir 51 units nightly. Vital signs reviewed and stable. General: Nontoxic, no distress and appears stated age. Derm: Skin warm and dry, normal coloration for ethnicity. Head: Atraumatic, normocephalic and symmetric. Eyes: EOMs intact, no lid lag, and anicteric sclera Mouth: no lip lesions, mucus membranes moist Cardiovascular: regular rate and rhythm with normal S1S2, no murmur, positive posterior tibial pulses bilaterally, and cap refill < 2 seconds. Lungs: Respirations even, regular, and unlabored on room air. Lungs CTA bilaterally, no rhonchi, no rales, no wheezing, and no accessory muscle usage. Abdominal: soft, distended abdomen status post delivery. [place] intact. Ext: ROM intact. No gross muscle atrophy, no edema, no contractures Neuro: Speech clear, face symmetrical and CN II-XII grossly intact with no noted focal neuro deficits Psych: Alert and oriented to person, place, time, and situation. Appropriate and pleasant affect. Assessment and Plan of Care: Insulin-dependent diabetes mellitus with hyperglycemia -Hemoglobin A1c 8.1%. Blood glucose levels have been reviewed and over the past 24 hours they have ranged from 134-270. -Continue with glycemic protocol with [id number] glucose 5 times daily ([id number]). Continue NovoLog sliding scale and Levemir 51 units nightly. -Recommend continuing carb consistent diet, pt educated on Gatorade and Vitamin shah at bedside containing excess carbohydrates. Hypomagnesemia -Labs reviewed, magnesium low at 1.4. Order placed for magnesium sulfate 3 g IVPB. Order also placed to repeat magnesium level with a.m. labs to monitor for resolution of Hypomagnesemia. Acute blood loss anemia, expected finding status post delivery -Morning labs reviewed, CBC revealing acute blood loss anemia with hemoglobin of 9.1 with a hemoglobin of 11.9 pre-delivery. This is an expected finding, hemoglobin is stable with no need for transfusion at this time. -We will continue to monitor with repeat morning CBC and transfuse if needed for hemoglobin less than 7. 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 Thank you for allowing us to participate in the care of this pleasant patient. Do not hesitate to contact us with questions. Someone can be reached from the [facility] [place] hospitalist group all hours of the day at [phone] or via [email or web address]. Patient was seen independently by Nurse Practitioner. This document was prepared using [employer] dictation software. Please allow for errors in hematology technologist while rare they do occur. I reviewed the documentation as provided by the CLEMENTE above, who is the original author of this note. I agree with the documented assessment and plan, with the following changes: none Objective - Vital Signs Vital signs: Vital Signs Temp 98 F 05/29/22 07:33 Pulse 86 05/29/22 07:33 Resp 16 05/29/22 07:33 BP 119/72 05/29/22 07:33 Pulse Ox 98 05/29/22 07:33 FiO2 Intake & Output 05/28/22 05/29/22 05/29/22 17:59 06:59 18:59 Intake Total Output Total Balance Intake: IV Oral Output: Urine Other: Voiding Method # Voids - Labs CBC & Chem 7: 05/30/22 03:57 05/30/22 03:57 Labs: Abnormal Lab Results - Last 24 Hours (Table) 05/28/22 05/28/22 05/28/22 Range/Units 11:57 17:04 19:55 RBC (3.80-5.40) m/uL Hgb (11.4-16.0) gm/dL Hct (34.0-46.0) % Sodium (137-145) mmol/L Creatinine (0.52-1.04) mg/dL Glucose (74-99) mg/dL POC Glucose (mg/dL) 147 H 270 H 173 H (70-110) mg/dL Calcium (8.4-10.2) mg/dL Magnesium (1.6-2.3) mg/dL Total Protein (6.3-8.2) g/dL Albumin (3.5-5.0) g/dL 05/29/22 05/29/22 05/29/22 Range/Units 01:05 05:42 05:42 RBC 3.16 L (3.80-5.40) m/uL Hgb 9.1 L D (11.4-16.0) gm/dL Hct 26.6 L (34.0-46.0) % Sodium 134 L (137-145) mmol/L Creatinine 0.38 L (0.52-1.04) mg/dL Glucose 185 H (74-99) mg/dL POC Glucose (mg/dL) 167 H (70-110) mg/dL Calcium 8.1 L (8.4-10.2) mg/dL Magnesium 1.4 L (1.6-2.3) mg/dL Total Protein 5.4 L (6.3-8.2) g/dL Albumin 2.7 L (3.5-5.0) g/dL 05/29/22 Range/Units 07:39 RBC (3.80-5.40) m/uL Hgb (11.4-16.0) gm/dL Hct (34.0-46.0) % Sodium (137-145) mmol/L Creatinine (0.52-1.04) mg/dL Glucose (74-99) mg/dL POC Glucose (mg/dL) 137 H (70-110) mg/dL Calcium (8.4-10.2) mg/dL Magnesium (1.6-2.3) mg/dL Total Protein (6.3-8.2) g/dL Albumin (3.5-5.0) g/dL
[2022-05-29] MEDS: MAGNESIUM SULFATE-D5W PMX 1 GM in DEXTROSE/WATER 1 100ML.BAG IVPB SCH ×2 (12:21→19:57)
[2022-05-29] MEDS: SIMETHICONE 80 MG CHEWABLE PO SCH ×3 (12:24→21:00)
[2022-05-29 16:54] LABS: Glucose,Whole Blood 112 mg/dL (70-110)
[2022-05-29 20:40] LABS: Glucose,Whole Blood 173 mg/dL (70-110)
[2022-05-29] MEDS: INSULIN DETEMIR (LEVEMIR) 100 UNIT/ML SYR SQ SCH (20:59)
[2022-05-30] MEDS: ACETAMINOPHEN TAB 500 MG TAB PO SCH ×4 (01:06→20:52)
[2022-05-30 01:10] LABS: Glucose,Whole Blood 194 mg/dL (70-110)
[2022-05-30] MEDS: IBUPROFEN 600 MG TAB PO SCH ×5 (01:20→23:43)
[2022-05-30] MEDS ORDERED: INSULIN ASPART (NovoLOG) 100 UNIT/ML VIAL SQ ONE (01:35)
[2022-05-30 04:48] LABS: HGB 8.8 gm/dL (11.4-16.0); MCH 28.5 pg (25.0-35.0); MCHC 33.7 g/dL (31.0-37.0); MCV 84.6 fL (80.0-100.0); Mean Platelet Volume 9.2; Platelet Count 217 k/uL (150-450); RBC 3.07 m/uL (3.80-5.40); RDW 14.8 % (11.5-15.5); WBC 8.5 k/uL (3.8-10.6)
[2022-05-30 05:00] LABS: African American GFR (CKD) >90 (>60 ml/min/1.73 sqM); Anion Gap 9 mmol/L; Blood Urea Nitrogen 11 mg/dL (7-17); Calcium 8.3 mg/dL (8.4-10.2); Carbon Dioxide 24 mmol/L (22-30); Chloride 103 mmol/L (98-107); Glucose 146 mg/dL (74-99); Magnesium 1.3 mg/dL (1.6-2.3); Non-African American GFR(CKD) >90 (>60 ml/min/1.73 sqM); Potassium 3.5 mmol/L (3.5-5.1); Sodium 136 mmol/L (137-145)
[2022-05-30 07:45] LABS: Glucose,Whole Blood 93 mg/dL (70-110)
[2022-05-30] MEDS: SENNOSIDES-DOCUSATE SODIUM 1 EACH TAB PO SCH ×2 (07:51→19:44)
[2022-05-30] MEDS: SIMETHICONE 80 MG CHEWABLE PO SCH ×4 (07:51→20:53)
[2022-05-30] MEDS: PRENATAL VIT-IRON-FOLIC ACID 1 EACH TABLET PO SCH (07:53)
[2022-05-30] MEDS: INSULIN ASPART (NovoLOG) 100 UNIT/ML VIAL SQ SCH ×4 (07:54→21:11)
--- NOTE | 2022-05-30 08:07 | P.PNOBGPC ---
Subjective - Subjective Principal diagnosis: Status post primary postoperative day #2 Interval history: Patient is doing better today. She does still complain of some abdominal gas type pain. Her sugars are starting to improve today. She is still pumping her breast milk. Baby is in level I nursery. Patient reports: Reports appetite normal, Reports voiding normally, Reports pain well controlled, Reports ambulating normally [place]: doing well, other (In level I nursery) Objective - Vital Signs Latest vital signs: Vital Signs Temp Pulse Resp BP Pulse Ox 05/30/22 07:59 97.9 F 94 16 125/78 98 05/30/22 01:00 98.0 F 91 16 133/81 99 05/29/22 12:00 97.9 F 86 16 124/75 - Exam Extremities: Present: normal. Absent: tenderness, edema Abdomen: Present: normal appearance, soft (Positive bowel sounds 4). Absent: distention, tenderness Incision: Present: normal, dry, intact. Absent: erythematous Uterus: Present: normal, firm. Absent: tenderness - Labs Labs: Abnormal Lab Results - Last 24 Hours (Table) 05/29/22 05/29/22 05/29/22 Range/Units 12:03 16:48 20:39 RBC (3.80-5.40) m/uL Hgb (11.4-16.0) gm/dL Hct (34.0-46.0) % Sodium (137-145) mmol/L Creatinine (0.52-1.04) mg/dL Glucose (74-99) mg/dL POC Glucose (mg/dL) 174 H 112 H 173 H (70-110) mg/dL Calcium (8.4-10.2) mg/dL Magnesium (1.6-2.3) mg/dL 05/30/22 05/30/22 05/30/22 Range/Units 01:09 03:57 03:57 RBC 3.07 L (3.80-5.40) m/uL Hgb 8.8 L (11.4-16.0) gm/dL Hct 26.0 L (34.0-46.0) % Sodium 136 L (137-145) mmol/L Creatinine 0.43 L (0.52-1.04) mg/dL Glucose 146 H (74-99) mg/dL POC Glucose (mg/dL) 194 H (70-110) mg/dL Calcium 8.3 L (8.4-10.2) mg/dL Magnesium 1.3 L (1.6-2.3) mg/dL Assessment and Plan Assessment: Status post primary low transverse section postoperative day #2 Type 2 diabetes on insulin (1) 37 weeks gestation of Current Visit: Yes Status: Acute Code(s): Z3A.37 - 37 WEEKS GESTATION OF SNOMED Code(s): 07141719 (2) Type 2 diabetes mellitus affecting in third trimester, antepartum Current Visit: Yes Status: Acute Code(s): O24.113 - PRE-EXISTING TYPE 2 DIABETES, IN , THIRD TRIMESTER SNOMED Code(s): 800267538 (3) Gestational hypertension Current Visit: Yes Status: Acute Code(s): O13.9 - GESTATIONAL HTN W/O SIGNIFICANT PROTEINURIA, UNSP TRIMESTER SNOMED Code(s): 84997022 (4) Group B Streptococcus carrier, +RV culture, currently Current Visit: Yes Status: Acute Code(s): O99.820 - STREPTOCOCCUS B CARRIER STATE COMPLICATING SNOMED Code(s): 4539178135178 Plan: Continue with postoperative and care. Dr. Miller will return tomorrow.
[2022-05-30] MEDS ORDERED: MAGNESIUM OXIDE 400 MG TAB PO STA (09:50)
[2022-05-30 11:43] LABS: Glucose,Whole Blood 257 mg/dL (70-110)
[2022-05-30] MEDS: MAGNESIUM SULFATE-D5W PMX 1 GM in DEXTROSE/WATER 1 100ML.BAG IVPB SCH ×2 (11:47→12:08)
--- NOTE | 2022-05-30 13:24 | P.PN ---
Subjective Progress Note Date: 05/30/22 Hospital course Patient is a very pleasant 26-year-old female with a past medical history of insulin-dependent diabetes mellitus type 2 and PCOS. She is currently status post delivery of her second child, a healthy baby girl this morning via section on 05/28/[address] Sutherland. We were consulted for medical management of patient's hyperglycemia secondary to her known insulin-dependent diabetes mellitus type 2. Physical exam: Patient seen and fully evaluated at bedside. Patient reports she is doing well and denies having any needs, questions, or concerns. Patient denies having any complaints at this time. She was currently visiting with her daughter in the nursery. Morning labs reviewed showing stable hemoglobin of 8.8 and persistent hypomagnesemia with magnesium of 1.3. Morning glucose 93. Blood glucose levels have ranged from 93-194 over the past 24 hours. Order placed for magnesium sulfate 3 g IVPB with no further changes to medication regimen at this time, we will continue with NovoLog sliding scale and Levemir 51 units nightly. Vital signs reviewed and stable. General: Nontoxic, no distress and appears stated age. Derm: Skin warm and dry, normal coloration for ethnicity. Head: Atraumatic, normocephalic and symmetric. Eyes: EOMs intact, no lid lag, and anicteric sclera Mouth: no lip lesions, mucus membranes moist Cardiovascular: regular rate and rhythm with normal S1S2, no murmur, positive posterior tibial pulses bilaterally, and cap refill < 2 seconds. Lungs: Respirations even, regular, and unlabored on room air. Lungs CTA bilaterally, no rhonchi, no rales, no wheezing, and no accessory muscle usage. Abdominal: soft, distended abdomen status post delivery. [place] intact. Ext: ROM intact. No gross muscle atrophy, no edema, no contractures Neuro: Speech clear, face symmetrical and CN II-XII grossly intact with no noted focal neuro deficits Psych: Alert and oriented to person, place, time, and situation. Appropriate and pleasant affect. Assessment and Plan of Care: Insulin-dependent diabetes mellitus with hyperglycemia -Hemoglobin A1c 8.1%. Blood glucose levels have been reviewed. Morning glucose 93. Blood glucose levels have ranged from 93-194 over the past 24 hours. -Continue with glycemic protocol and [id number] glucose 5 times daily ([id number]). Continue NovoLog sliding scale and Levemir 51 units nightly. -Recommend continuing carb consistent diet. Hypomagnesemia -Labs reviewed, magnesium remains low at 1.3. Order placed for magnesium sulfate 3 g IVPB. Order also placed to repeat magnesium level with a.m. labs to monitor for resolution of Hypomagnesemia. Acute blood loss anemia, expected finding in period status post delivery -Morning labs reviewed, CBC revealing acute blood loss anemia with hemoglobin of 8.8 with a hemoglobin of 11.9 pre-delivery. This is an expected finding, hemoglobin is stable at this time with no need for transfusion. -We will continue to monitor with repeat morning CBC and transfuse if needed for hemoglobin less than 7. Status post delivery -Management per primary admitting [employer]TER team including pain management, wound care/dressing changes, monitoring of uterine fundus, and assessing/monitoring amount of vaginal bleeding. Thank you for allowing us to participate in the care of this pleasant patient. Do not hesitate to contact us with questions. Someone can be reached from the [facility] hospitalist group all hours of the day at [phone] or via [employer]. Patient was seen independently by Nurse Practitioner. This document was prepared using [employer] dictation software. Please allow for errors in bi tester while rare they do occur. I reviewed the documentation as provided by the CLEMENTE above, who is the original author of this note. I agree with the documented assessment and plan, with the following changes: none Objective - Vital Signs Vital signs: Vital Signs Temp 97.9 F 05/30/22 07:59 Pulse 94 05/30/22 07:59 Resp 16 05/30/22 07:59 BP 125/78 05/30/22 07:59 Pulse Ox 98 05/30/22 07:59 FiO2 - Labs CBC & Chem 7: 05/31/22 05:03 05/31/22 05:03 Labs: Abnormal Lab Results - Last 24 Hours (Table) 05/29/22 05/29/22 05/29/22 Range/Units 12:03 16:48 20:39 RBC (3.80-5.40) m/uL Hgb (11.4-16.0) gm/dL Hct (34.0-46.0) % Sodium (137-145) mmol/L Creatinine (0.52-1.04) mg/dL Glucose (74-99) mg/dL POC Glucose (mg/dL) 174 H 112 H 173 H (70-110) mg/dL Calcium (8.4-10.2) mg/dL Magnesium (1.6-2.3) mg/dL 05/30/22 05/30/22 05/30/22 Range/Units 01:09 03:57 03:57 RBC 3.07 L (3.80-5.40) m/uL Hgb 8.8 L (11.4-16.0) gm/dL Hct 26.0 L (34.0-46.0) % Sodium 136 L (137-145) mmol/L Creatinine 0.43 L (0.52-1.04) mg/dL Glucose 146 H (74-99) mg/dL POC Glucose (mg/dL) 194 H (70-110) mg/dL Calcium 8.3 L (8.4-10.2) mg/dL Magnesium 1.3 L (1.6-2.3) mg/dL
[2022-05-30 16:50] LABS: Glucose,Whole Blood 126 mg/dL (70-110)
[2022-05-30] MEDS: INSULIN DETEMIR (LEVEMIR) 100 UNIT/ML SYR SQ SCH (21:10)
[2022-05-31 01:03] LABS: Glucose,Whole Blood 180 mg/dL (70-110)
[2022-05-31 01:51] LABS: Glucose,Whole Blood 125 mg/dL (70-110)
[2022-05-31] MEDS: ACETAMINOPHEN TAB 500 MG TAB PO SCH ×4 (03:07→21:07)
[2022-05-31 05:30] LABS: HCT 26.3 % (34.0-46.0); HGB 8.8 gm/dL (11.4-16.0); MCH 28.8 pg (25.0-35.0); MCHC 33.6 g/dL (31.0-37.0); MCV 85.8 fL (80.0-100.0); Mean Platelet Volume 7.6; Platelet Count 223 k/uL (150-450); RBC 3.07 m/uL (3.80-5.40); RDW 14.8 % (11.5-15.5); WBC 6.1 k/uL (3.8-10.6)
[2022-05-31 05:41] LABS: African American GFR (CKD) >90 (>60 ml/min/1.73 sqM); Anion Gap 5 mmol/L; Blood Urea Nitrogen 8 mg/dL (7-17); Calcium 8.4 mg/dL (8.4-10.2); Carbon Dioxide 25 mmol/L (22-30); Chloride 106 mmol/L (98-107); Glucose 75 mg/dL (74-99); Magnesium 1.4 mg/dL (1.6-2.3); Non-African American GFR(CKD) >90 (>60 ml/min/1.73 sqM); Sodium 136 mmol/L (137-145)
[2022-05-31] MEDS: IBUPROFEN 600 MG TAB PO SCH ×4 (05:54→21:31)
[2022-05-31 07:45] LABS: Glucose,Whole Blood 80 mg/dL (70-110)
[2022-05-31] MEDS: INSULIN ASPART (NovoLOG) 100 UNIT/ML VIAL SQ SCH ×4 (07:50→21:08)
--- NOTE | 2022-05-31 08:44 | P.PNOBGPC ---
Subjective - Subjective Principal diagnosis: S/P 1*LTCS POD #3 Interval history: Pt seen and examined. sugars controlled by medicine. pain is controlled. Denies N/V, F/C, CP, SOB or calf pain. Patient reports: Reports appetite normal, Reports voiding normally, Reports pain well controlled, Reports ambulating normally Objective - Vital Signs Latest vital signs: Vital Signs Temp Pulse Resp BP Pulse Ox 05/31/22 07:48 97.7 F 81 17 123/68 99 05/31/22 00:00 97.9 F 85 18 131/85 05/30/22 15:49 97.5 F L 80 16 131/85 99 - Exam Lungs: bilateral: normal Chest: Normal S1, Normal S2 Extremities: Present: normal Abdomen: Present: normal appearance, soft. Absent: distention, tenderness Incision: Present: normal, dry, intact Uterus: Present: normal, firm - Labs Labs: Abnormal Lab Results - Last 24 Hours (Table) 05/30/22 05/30/22 05/30/22 Range/Units 11:42 16:48 20:56 RBC (3.80-5.40) m/uL Hgb (11.4-16.0) gm/dL Hct (34.0-46.0) % Sodium (137-145) mmol/L Creatinine (0.52-1.04) mg/dL POC Glucose (mg/dL) 257 H 126 H 180 H (70-110) mg/dL Magnesium (1.6-2.3) mg/dL 05/31/22 05/31/22 05/31/22 Range/Units 01:49 05:03 05:03 RBC 3.07 L (3.80-5.40) m/uL Hgb 8.8 L (11.4-16.0) gm/dL Hct 26.3 L (34.0-46.0) % Sodium 136 L (137-145) mmol/L Creatinine 0.31 L (0.52-1.04) mg/dL POC Glucose (mg/dL) 125 H (70-110) mg/dL Magnesium 1.4 L (1.6-2.3) mg/dL Assessment and Plan (1) Type 2 diabetes mellitus Current Visit: Yes Status: Acute Code(s): E11.9 - TYPE 2 DIABETES MELLITUS WITHOUT COMPLICATIONS SNOMED Code(s): 84926211 (2) Status post primary low transverse section Current Visit: Yes Status: Acute Code(s): Z98.891 - HISTORY OF UTERINE SCAR FROM PREVIOUS SURGERY SNOMED Code(s): 409465879 Plan: 1. d/c marika. 2. possible d/c home today 3. needs case management to help find pcp for her
[2022-05-31] MEDS: SIMETHICONE 80 MG CHEWABLE PO SCH ×4 (08:59→21:32)
[2022-05-31] MEDS: SENNOSIDES-DOCUSATE SODIUM 1 EACH TAB PO SCH ×2 (08:59→21:09)
[2022-05-31] MEDS: PRENATAL VIT-IRON-FOLIC ACID 1 EACH TABLET PO SCH (09:09)
[2022-05-31] MEDS: MAGNESIUM SULFATE-D5W PMX 1 GM in DEXTROSE/WATER 1 100ML.BAG IVPB SCH ×3 (10:22→12:14)
[2022-05-31 11:17] LABS: Glucose,Whole Blood 117 mg/dL (70-110)
[2022-05-31 17:37] LABS: Glucose,Whole Blood 118 mg/dL (70-110)
--- NOTE | 2022-05-31 17:40 | P.PN ---
Subjective Progress Note Date: 05/31/22 Hospital course Patient is a very pleasant 26-year-old female with a past medical history of insulin-dependent diabetes mellitus type 2 and PCOS. She is currently status post delivery of her second child, a healthy baby girl this morning via section on 05/28/[address] Sutherland. We were consulted for medical management of patient's hyperglycemia secondary to her known insulin-dependent diabetes mellitus type 2. Physical exam: Patient seen and fully evaluated at bedside. Patient reports she is doing well and denies having any needs, questions, or concerns. Patient denies having any complaints at this time. Vital signs reviewed and stable. General: Nontoxic, no distress and appears stated age. Derm: Skin warm and dry, normal coloration for ethnicity. Head: Atraumatic, normocephalic and symmetric. Eyes: EOMs intact, no lid lag, and anicteric sclera Mouth: no lip lesions, mucus membranes moist Cardiovascular: regular rate and rhythm with normal S1S2, no murmur, positive posterior tibial pulses bilaterally, and cap refill < 2 seconds. Lungs: Respirations even, regular, and unlabored on room air. Lungs CTA bilaterally, no rhonchi, no rales, no wheezing, and no accessory muscle usage. Abdominal: soft, distended abdomen status post delivery. [place] intact. Ext: ROM intact. No gross muscle atrophy, no edema, no contractures Neuro: Speech clear, face symmetrical and CN II-XII grossly intact with no noted focal neuro deficits Psych: Alert and oriented to person, place, time, and situation. Appropriate and pleasant affect. Assessment and Plan of Care: Insulin-dependent diabetes mellitus with hyperglycemia -Hemoglobin A1c 8.1%. Blood glucose levels have been reviewed. Morning glucose 80. Blood glucose levels have ranged from 83-257 over the past 24 hours. -Continue with glycemic protocol and [id number] glucose 5 times daily ([id number]). Continue NovoLog sliding scale and Levemir 51 units nightly. -Recommend continuing carb consistent diet. Hypomagnesemia -Labs reviewed, magnesium remains low at 1.4. Order placed for magnesium sulfate 3 g IVPB. Order also placed to repeat magnesium level with a.m. labs to monitor for resolution of Hypomagnesemia. Acute blood loss anemia, expected finding in period status post delivery -Morning labs reviewed, CBC revealing acute blood loss anemia with hemoglobin of 8.8 with a hemoglobin of 11.9 pre-delivery. This is an expected finding, hem oglobin is stable at this time with no need for transfusion. -We will continue to monitor with repeat morning CBC and transfuse if needed for hemoglobin less than 7. Status post delivery -Management per primary admitting [employer] WOR[employer] MANAGER team including pain management, wound care/dressing changes, monitoring of uterine fundus, and assessing/monitoring amount of vaginal bleeding. Thank you for allowing us to participate in the care of this pleasant patient. Do not hesitate to contact us with questions. Someone can be reached from the [facility] hospitalist group all hours of the day at [phone] or via [employer]. Patient was seen independently by Nurse Practitioner. This document was prepared using [employer] dictation software. Please allow for errors in production planner while rare they do occur. I reviewed the documentation as provided by the CLEMENTE above, who is the original author of this note. I agree with the documented assessment and plan, with the following changes: none Objective - Vital Signs Vital signs: Vital Signs Temp 97.7 F 05/31/22 07:48 Pulse 81 05/31/22 07:48 Resp 17 05/31/22 07:48 BP 123/68 05/31/22 07:48 Pulse Ox 99 05/31/22 07:48 FiO2 - Labs CBC & Chem 7: 05/31/22 05:03 05/31/22 05:03 Labs: Abnormal Lab Results - Last 24 Hours (Table) 05/30/22 05/30/22 05/30/22 Range/Units 11:42 16:48 20:56 RBC (3.80-5.40) m/uL Hgb (11.4-16.0) gm/dL Hct (34.0-46.0) % Sodium (137-145) mmol/L Creatinine (0.52-1.04) mg/dL POC Glucose (mg/dL) 257 H 126 H 180 H (70-110) mg/dL Magnesium (1.6-2.3) mg/dL 05/31/22 05/31/22 05/31/22 Range/Units 01:49 05:03 05:03 RBC 3.07 L (3.80-5.40) m/uL Hgb 8.8 L (11.4-16.0) gm/dL Hct 26.3 L (34.0-46.0) % Sodium 136 L (137-145) mmol/L Creatinine 0.31 L (0.52-1.04) mg/dL POC Glucose (mg/dL) 125 H (70-110) mg/dL Magnesium 1.4 L (1.6-2.3) mg/dL
[2022-05-31 21:02] LABS: Glucose,Whole Blood 205 mg/dL (70-110)
[2022-05-31] MEDS: INSULIN DETEMIR (LEVEMIR) 100 UNIT/ML SYR SQ SCH (21:08)
[2022-06-01 01:41] LABS: Glucose,Whole Blood 133 mg/dL (70-110)
[2022-06-01] MEDS: IBUPROFEN 600 MG TAB PO SCH (01:56)
[2022-06-01] MEDS: ACETAMINOPHEN TAB 500 MG TAB PO SCH ×3 (01:57→07:56)
[2022-06-01 07:15] LABS: HCT 25.9 % (34.0-46.0); HGB 8.5 gm/dL (11.4-16.0); MCH 28.2 pg (25.0-35.0); MCHC 32.7 g/dL (31.0-37.0); MCV 86.2 fL (80.0-100.0); Mean Platelet Volume 8.5; Platelet Count 265 k/uL (150-450); RDW 14.8 % (11.5-15.5); WBC 6.6 k/uL (3.8-10.6)
[2022-06-01 07:20] LABS: African American GFR (CKD) >90 (>60 ml/min/1.73 sqM); Anion Gap 6 mmol/L; Blood Urea Nitrogen 11 mg/dL (7-17); Calcium 8.4 mg/dL (8.4-10.2); Carbon Dioxide 25 mmol/L (22-30); Chloride 105 mmol/L (98-107); Glucose 93 mg/dL (74-99); Magnesium 1.5 mg/dL (1.6-2.3); Non-African American GFR(CKD) >90 (>60 ml/min/1.73 sqM); Potassium 3.8 mmol/L (3.5-5.1); Sodium 136 mmol/L (137-145)
[2022-06-01 07:47] LABS: Glucose,Whole Blood 91 mg/dL (70-110)
[2022-06-01] MEDS: SENNOSIDES-DOCUSATE SODIUM 1 EACH TAB PO SCH (07:59)
[2022-06-01] MEDS: INSULIN ASPART (NovoLOG) 100 UNIT/ML VIAL SQ SCH (07:59)
--- NOTE | 2022-06-01 08:29 | P.PNOBGPC ---
Subjective - Subjective Principal diagnosis: Status post primary low transverse postop day 4 Interval history: Patient seen and examined. Denies nausea, vomiting, chest pain, shortness of breath or calf pain. Sugars are still rather uncontrolled her hemoglobin A1c is 8.1. She will need follow-up outpatient and I believe that case management is going to place her with Dr. Montano Patient reports: Reports appetite normal, Reports voiding normally, Reports pain well controlled, Reports ambulating normally Objective - Vital Signs Latest vital signs: Vital Signs Temp Pulse Resp BP Pulse Ox 05/31/22 23:24 97.6 F 84 16 133/82 05/31/22 15:03 97.8 F 89 17 131/76 99 Intake and Output 05/31/22 06/01/22 06/01/22 22:59 06:59 14:59 Intake Total 200 Balance 200 Intake: Oral 200 - Exam Lungs: bilateral: normal Chest: Normal S1, Normal S2 Extremities: Present: normal Abdomen: Present: normal appearance, soft. Absent: distention, tenderness Incision: Present: normal, dry, intact Uterus: Present: normal, firm - Labs Labs: Abnormal Lab Results - Last 24 Hours (Table) 05/31/22 05/31/22 05/31/22 Range/Units 11:15 17:35 21:00 RBC (3.80-5.40) m/uL Hgb (11.4-16.0) gm/dL Hct (34.0-46.0) % Sodium (137-145) mmol/L Creatinine (0.52-1.04) mg/dL POC Glucose (mg/dL) 117 H 118 H 205 H (70-110) mg/dL Magnesium (1.6-2.3) mg/dL 06/01/22 06/01/22 06/01/22 Range/Units 01:40 06:36 06:36 RBC 3.00 L (3.80-5.40) m/uL Hgb 8.5 L (11.4-16.0) gm/dL Hct 25.9 L (34.0-46.0) % Sodium 136 L (137-145) mmol/L Creatinine 0.43 L (0.52-1.04) mg/dL POC Glucose (mg/dL) 133 H (70-110) mg/dL Magnesium 1.5 L (1.6-2.3) mg/dL Assessment and Plan (1) Type 2 diabetes mellitus Current Visit: Yes Status: Acute Code(s): E11.9 - TYPE 2 DIABETES MELLITUS WITHOUT COMPLICATIONS SNOMED Code(s): 39991287 (2) Status post primary low transverse section Current Visit: Yes Status: Acute Code(s): Z98.891 - HISTORY OF UTERINE SCAR FROM PREVIOUS SURGERY SNOMED Code(s): 684754459 Plan: 1. Hopefully patient can be discharged today. From a obstetric standpoint she is cleared to go home as long as she has follow up with a primary care physician to help her with her diabetes.
[2022-06-01 08:37] VITALS: BP 127/82; PULSE 86; RESP 18; TEMP 97.7
[2022-06-01] MEDS ORDERED: MAGNESIUM SULFATE-D5W PMX 1 GM in DEXTROSE/WATER 1 100ML.BAG IVPB SCH (09:45)
[2022-06-01] MEDS ORDERED: MAGNESIUM OXIDE 400 MG TAB PO SCH (10:30)
[2022-06-01] MEDS: PRENATAL VIT-IRON-FOLIC ACID 1 EACH TABLET PO SCH (11:15)
[2022-06-01] MEDS: SIMETHICONE 80 MG CHEWABLE PO SCH (11:15)
[2022-06-01 11:41] LABS: Glucose,Whole Blood 126 mg/dL (70-110)
--- NOTE | 2022-06-01 14:54 | P.PN ---
Subjective Progress Note Date: 06/01/22 Subjective: Patient seen and examined in the nursery. She denies any chest pain, shortness of breath, abdominal pain, nausea, vomiting, diarrhea, constipation. Pertinent positives and negatives as discussed above, a complete review of systems was performed and all other systems are negative. Vitals Signs Reviewed. General: nontoxic, no distress, appears at stated age] Derm: dry Head: atraumatic, normocephalic, symmetric Eyes: EOMI, no lid lag, anicteric sclera Mouth: no lip lesion, mucus membranes moist Cardiovascular: No edema Lungs: no accessory muscle use Abdominal: Abdominal distention Ext: no gross muscle atrophy Neuro: CN II-XI grossly intact, no focal neuro deficits Psych: Alert, oriented, appropriate affect Data reviewed today: Laboratory data: WBC 6.6, hemoglobin 8.5, sodium 136, creatinine 0.43, magnesium 1.5 blood sugar is between 91-133 Assessment and Plan: Pre-gestational diabetes Insulin-dependent diabetes mellitus with hyperglycemia, A1c 8.1 -Patient has previously not been on insulin, was started on insulin therapy during first trimester of this -She did have gestational diabetes during her prior , and had not been taking any medications after that -We will decrease the Levemir to 20 units -Patient to continue to record her blood glucose levels pre-meal and at night -She will see her PCP and OB as soon as possible -10 consider taking her off of insulin and starting oral antidiabetics -Repeat A1c in 3 months Hypomagnesemia -Oral magnesium oxide 400 mg twice a day ordered Status post Acute blood loss anemia, expected outcome of surgery and Patient medically optimized for discharge home. Thank you for allowing us to participate in the care of this pleasant patient. Do not hesitate to contact us with questions. Someone can be reached from the [facility] hospitalist group all hours of the day at [phone] or via [employer]. Objective - Vital Signs Vital signs: Vital Signs Temp 97.7 F 06/01/22 08:00 Pulse 86 06/01/22 08:00 Resp 18 06/01/22 08:00 BP 127/82 06/01/22 08:00 Pulse Ox 100 06/01/22 08:00 FiO2 Intake & Output 05/31/22 06/01/22 06/01/22 18:59 06:59 18:59 Intake Total 200 Balance 200 Intake: Oral 200 - Labs CBC & Chem 7: 06/01/22 06:36 06/01/22 06:36 Labs: Abnormal Lab Results - Last 24 Hours (Table) 05/31/22 05/31/22 06/01/22 Range/Units 17:35 21:00 01:40 RBC (3.80-5.40) m/uL Hgb (11.4-16.0) gm/dL Hct (34.0-46.0) % Sodium (137-145) mmol/L Creatinine (0.52-1.04) mg/dL POC Glucose (mg/dL) 118 H 205 H 133 H (70-110) mg/dL Magnesium (1.6-2.3) mg/dL 06/01/22 06/01/22 06/01/22 Range/Units 06:36 06:36 11:38 RBC 3.00 L (3.80-5.40) m/uL Hgb 8.5 L (11.4-16.0) gm/dL Hct 25.9 L (34.0-46.0) % Sodium 136 L (137-145) mmol/L Creatinine 0.43 L (0.52-1.04) mg/dL POC Glucose (mg/dL) 126 H (70-110) mg/dL Magnesium 1.5 L (1.6-2.3) mg/dL
== END 2022-06-01 13:00 | disposition home or self-care (01) | DRG 540 ==
LOC: FBPOP 19:10 → 4FBP 22:30
PROVIDERS: ADMIT Obstetrics & Gynecology; ATTEND Obstetrics & Gynecology
PROC: 10907ZC Drainage of Amniotic Fluid, Therapeutic from Products of Conception, Via Natural or Artificial Opening (ICD-10-PCS; 2022-05-27)
PROC: 10D00Z1 Extraction of Products of Conception, Low, Open Approach (ICD-10-PCS; principal; 2022-05-28 03:09)
DX: O24.12 Pre-existing type 2 diabetes mellitus, in childbirth (principal); O76 Abnormality in fetal heart rate and rhythm complicating labor and delivery; O99.824 Streptococcus B carrier state complicating childbirth; O99.284 Endocrine, nutritional and metabolic diseases complicating childbirth; E83.42 Hypomagnesemia; E11.65 Type 2 diabetes mellitus with hyperglycemia; O99.344 Other mental disorders complicating childbirth; F31.9 Bipolar disorder, unspecified; L29.9 Pruritus, unspecified; F90.9 Attention-deficit hyperactivity disorder, unspecified type; E28.2 Polycystic ovarian syndrome; F41.9 Anxiety disorder, unspecified; D62 Acute posthemorrhagic anemia; Z86.32 Personal history of gestational diabetes; Z37.0 Single live birth; Z3A.37 37 weeks gestation of pregnancy; Z79.82 Long term (current) use of aspirin; Z87.442 Personal history of urinary calculi; Z87.891 Personal history of nicotine dependence; Z79.4 Long term (current) use of insulin; Z28.310 Unvaccinated for COVID-19; Z28.21 Immunization not carried out because of patient refusal; Z86.14 Personal history of Methicillin resistant Staphylococcus aureus infection; Z88.2 Allergy status to sulfonamides
CPT/HCPCS: 36415; 59025; 80048; 80053; 81001; 82565; 82570; 83036; 83615; 83735; 84156; 84450; 84460; 84520; 84550; 85025; 85027; 85384; 85610; 85730; 86850; 86900; 86901; 88307; 99213

== ENCOUNTER 2022-09-20 13:22 | Emergency (ER) | payer OTHER ==
[2022-09-20 13:32] VITALS: RESP 18
[2022-09-20 14:20] LABS: Appearance,Urine Cloudy (Clear); Bacteria,Urine Moderate /hpf; Bilirubin,Urine Negative (Negative); Blood,Urine Negative (Negative); Color,Urine Light Yellow; Glucose,Urine (UA) Negative (Negative); Ketones,Urine Negative (Negative); Leukocyte Esterase,Urine Moderate (Negative); Nitrite,Urine Negative (Negative); PH, Urine 6.5 (5.0-8.0); Protein,Urine Negative (Negative); RBC,Urine <1 /hpf (0-5); Specific Gravity,Urine 1.003 (1.001-1.035); Squamous Epithelial Cell,Urine 8 /hpf (0-4); Urobilinogen,Urine <2.0 mg/dL (<2.0); WBC,Urine 14 /hpf (0-5)
[2022-09-20] MEDS ORDERED: SODIUM CHLORIDE 0.9% 1,000 ML IV ONE ×2 (15:03→16:36)
[2022-09-20] MEDS ORDERED: ACETAMINOPHEN TAB 325 MG TAB PO STA (15:03)
[2022-09-20 15:43] LABS: Basophils % (A) 0 %; Eosinophils # (A) 0.1 k/uL (0-0.7); Eosinophils % (A) 1 %; HCT 35.9 % (34.0-46.0); HGB 11.9 gm/dL (11.4-16.0); Lymphocytes # (A) 1.4 k/uL (1.0-4.8); Lymphocytes % (A) 13 %; MCH 26.7 pg (25.0-35.0); MCHC 33.1 g/dL (31.0-37.0); MCV 80.4 fL (80.0-100.0); Mean Platelet Volume 7.7; Monocytes # (A) 0.6 k/uL (0-1.0); Monocytes % (A) 6 %; Neutrophils # (A) 8.2 k/uL (1.3-7.7); Neutrophils % (A) 79 %; Platelet Count 291 k/uL (150-450); RBC 4.47 m/uL (3.80-5.40); RDW 14.7 % (11.5-15.5); WBC 10.3 k/uL (3.8-10.6)
[2022-09-20 15:53] LABS: ALT 37 U/L (4-34); AST 32 U/L (14-36); African American GFR (CKD) >90 (>60 ml/min/1.73 sqM); Alkaline Phosphatase 78 U/L (38-126); Anion Gap 15 mmol/L; Blood Urea Nitrogen 4 mg/dL (7-17); Calcium 9.2 mg/dL (8.4-10.2); Carbon Dioxide 24 mmol/L (22-30); Chloride 101 mmol/L (98-107); Glucose 211 mg/dL (74-99); Non-African American GFR(CKD) >90 (>60 ml/min/1.73 sqM); Potassium 3.3 mmol/L (3.5-5.1); Sodium 140 mmol/L (137-145); Total Bilirubin 1.3 mg/dL (0.2-1.3); Total Protein 8.3 g/dL (6.3-8.2)
[2022-09-20] MEDS ORDERED: ONDANSETRON 4 MG/2 ML VIAL IVP STA (15:54)
--- NOTE | 2022-09-20 15:59 | ED ---
General Adult HPI - General Chief complaint: Urogenital Stated complaint: Abd Pain Time Seen by Provider: 09/20/22 14:54 Source: patient Mode of arrival: ambulatory Limitations: no limitations - History of Present Illness Initial comments: 19-year-old female with a past medical history significant for diabetes mellitus type 1 presents the emergency department with a chief complaint of dysuria. Patient reports that she was seen at [facility] week ago and was given Keflex for her urinary tract infection. She reports she has a course of antibiotics however she still reports symptoms of dysuria, back pain, flank pain, nausea, and fever. She took priority in for 3 days with mild symptomatic relief. Admits to History of kidney stones. Denies vomiting, hematuria, melena, vaginal bleeding, vaginal cramping, vaginal discharge - Related Data Home Medications Medication Instructions Recorded Confirmed Insulin Glargine,Hum.rec.anlog 4 units SQ HS 09/20/22 09/20/22 [Lantus Solostar Pen] Insulin Lispro [humaLOG Kwikpen] See Protocol SQ AC-TID 09/20/22 09/20/22 Previous Rx's Medication Instructions Recorded Ciprofloxacin HCl [Cipro] 500 mg PO Q12HR #20 tablet 09/20/22 Allergies Allergy/AdvReac Type Severity Reaction Status Date / Time sulfamethoxazole Allergy Rash/Hives Verified 09/20/22 17:58 [From Bactrim] trimethoprim [From Bactrim] Allergy Rash/Hives Verified 09/20/22 17:58 mosquitos Allergy Rash/Hives Uncoded 09/20/22 17:58 Review of Systems ROS Statement: Those systems with pertinent positive or pertinent negative responses have been documented in the HPI. ROS Other: All systems not noted in ROS Statement are negative. Past Medical History Past Medical History: Diabetes Mellitus Additional Past Medical History / Comment(s): KIDNEY STONES, history of gestational diabetes with her last , Type 2 diabetes, polycystic ovarian syndrome History of Any Multi-Drug Resistant Organisms: MRSA Date of last positivie culture/infection: 2012 MDRO Source:: BUTTOCK/BREAST Past Surgical History: Cholecystectomy, Hernia Repair Additional Past Surgical History / Comment(s): Left inguinal hernia repair, Past Anesthesia/Blood Transfusion Reactions: No Reported Reaction Past Psychological History: ADD/ADHD, Anxiety, Bipolar, Depression Smoking Status: Former smoker Past Alcohol Use History: Rare Past Drug Use History: None Reported - Past Family History Mother Family Medical History: No Reported History Additional Family Medical History / Comment(s): Mother is alive at age 41 with no major medical problems. Patient has 2 half-brothers and one half-sister with no major medical problems. Father Family Medical History: No Reported History Additional Family Medical History / Comment(s): Father is alive at age 46 with history of celiac disease General Exam Limitations: no limitations Course Vital Signs 09/20/22 09/20/22 09/20/22 13:27 16:00 18:00 Temperature 99.8 F H 101.9 F H 98.7 F Pulse Rate 115 H 106 H 96 Respiratory 18 18 18 Rate Blood Pressure 126/73 117/60 133/85 O2 Sat by Pulse 99 99 98 Oximetry - Reevaluation(s) Reevaluation #1: 09/20/22 16:45 Patient reevaluated. Patient still reports pain. Patient maintains afebrile. Second liter fluids and Toradol and additional imaging ordered Reevaluation #2: 09/20/22 18:58 Should reevaluated. Patient reports some symptomatic relief status post medications and fluids. Patient was given a dose of Cipro in the ED and discharged in stable condition Medical Decision Making - Medical Decision Making Was pt. sent in by a medical professional or institution (TYE Núñez, INTERNAL GRINDING MACHINE OPERATOR, urgent care, hospital, or long term...) When possible be specific @ -[No] Did you speak to anyone other than the patient for history (EMS, parent, family, police, friend...)? What history was obtained from this source @ -[No] Did you review nursing and triage notes (agree or disagree)? Why? @ -[I reviewed and agree with nursing and triage notes] Were old charts reviewed (outside hosp., previous admission, EMS record, old EKG, old radiological studies, urgent care reports/EKG's, long term records)? Report findings @ -[No old charts were reviewed] Differential Diagnosis (chest pain, altered mental status, abdominal pain women, abdominal pain men, vaginal bleeding, weakness, fever, dyspnea, syncope, heada forest, dizziness, GI bleed, back pain, seizure, CVA, palpatations, mental health, musculoskeletal)? @ -[not applicable] EKG interpreted by me (3pts min.). @ -[As above] X-rays interpreted by me (1pt min.). @ -[None done] CT interpreted by me (1pt min.). @ -[None done] U/S interpreted by me (1pt. min.). @ -[None done] What testing was considered but not performed or refused? (CT, X-rays, U/S, labs)? Why? @ -[None] What meds were considered but not given or refused? Why? @ -[None] Did you discuss the management of the patient with other professionals (professionals i.e. , PA, INTERNAL GRINDING MACHINE OPERATOR, lab, RT, psych nurse, manager social responsibility, supervisor gate services, te acher, correction officer, bilingual patient support caseworker)? Give summary @ -[No] Was smoking cessation discussed for >3mins.? @ -[No] Was critical care preformed (if so, how long)? @ -[No] Were there social determinants of health that impacted care today? How? (Homelessness, low income, unemployed, alcoholism, drug addiction, transportation, low edu. Level, literacy, decrease access to med. care, alf, re hab)? @ -[No] Was there de-escalation of care discussed even if they declined (Discuss DNR or withdrawal of care, Hospice)? DNR status @ -[No] What co-morbidities impacted this encounter? (DM, HTN, Smoking, COPD, CAD, Cancer, CVA, ARF, Chemo, Hep., AIDS, mental health diagnosis, sleep apnea, morbid obesity)? @ -[None] Was patient admitted / discharged? Hospital course, mention meds given and route, prescriptions, significant lab abnormalities, going to OR and other pertinent info. @ Discharge. This is a pleasant 27-year-old female presents the emergency department with dysuria. Patient had a thorough history and physical exam performed while in the ED. Physical reveals a septal patient without CVA tenderness. Patient had lab work and imaging performed which revealed: CT revealed no renal or uretolithiasis Without any etiology for obstruction. Lab work is essentially unremarkable with urinalysis that appears leukocyte esterase and 14 wbc's I discussed the results in detail with the patient verbalized understanding and all questions were addressed. She was given 2 L of IV fluids, Toradol, morphine, Zofran with symptomatic relief in the ED. She is agreeable with the plan for discharge home. She will be given Cipro in the emergency department and a prescription for Cipro upon discharge. Return precautions were discussed at length. Patient discharged in stable condition. Case discussed with BRITT Jimenez who agrees with plan of care Undiagnosed new problem with uncertain prognosis? @ -[No] Drug Therapy requiring intensive monitoring for toxicity (Heparin, Nitro, I nsulin, Cardizem)? @ -[No] Were any procedures done? @ -[No] Diagnosis/symptom? @ -Dysuria Acute, or Chronic, or Acute on Chronic? @ -Acute Uncomplicated (without systemic symptoms) or Complicated (systemic symptoms)? @ -Uncomplicated Side effects of treatment? @ -[No] Exacerbation, Progression, or Severe Exacerbation? @ -[No] Poses a threat to life or bodily function? How? (Chest pain, [place], [place], pneumonia, PE, COPD, DKA, ARF, appy, cholecystitis, CVA, Diverticulitis, Homicidal, Suicidal, threat to staff... and all critical care pts) @ -Low likelihood - Lab Data Result diagrams: 09/20/22 15:33 09/20/22 15:33 Lab Results 09/20/22 09/20/22 09/20/22 Range/Units 13:52 15:33 15:33 WBC 10.3 (3.8-10.6) k/uL RBC 4.47 (3.80-5.40) m/uL Hgb 11.9 (11.4-16.0) gm/dL Hct 35.9 (34.0-46.0) % MCV 80.4 (80.0-100.0) fL MCH 26.7 (25.0-35.0) pg MCHC 33.1 (31.0-37.0) g/dL RDW 14.7 (11.5-15.5) % Plt Count 291 (150-450) k/uL MPV 7.7 Neutrophils % 79 % Lymphocytes % 13 % Monocytes % 6 % Eosinophils % 1 % Basophils % 0 % Neutrophils # 8.2 H (1.3-7.7) k/uL Lymphocytes # 1.4 (1.0-4.8) k/uL Monocytes # 0.6 (0-1.0) k/uL Eosinophils # 0.1 (0-0.7) k/uL Basophils # 0.0 (0-0.2) k/uL Sodium 140 (137-145) mmol/L Potassium 3.3 L (3.5-5.1) mmol/L Chloride 101 (98-107) mmol/L Carbon Dioxide 24 (22-30) mmol/L Anion Gap 15 mmol/L BUN 4 L (7-17) mg/dL Creatinine 0.45 L (0.52-1.04) mg/dL Est GFR (CKD-EPI)AfAm >90 (>60 ml/min/1.73 sqM) Est GFR (CKD-EPI)NonAf >90 (>60 ml/min/1.73 sqM) Glucose 211 H (74-99) mg/dL Plasma Lactic Acid Lexx (0.7-2.0) mmol/L Calcium 9.2 (8.4-10.2) mg/dL Total Bilirubin 1.3 (0.2-1.3) mg/dL AST 32 (14-36) U/L ALT 37 H (4-34) U/L Alkaline Phosphatase 78 (38-126) U/L Total Protein 8.3 H (6.3-8.2) g/dL Albumin 5.0 (3.5-5.0) g/dL Urine Color Light Yellow Urine Appearance Cloudy H (Clear) Urine pH 6.5 (5.0-8.0) Ur Specific [place] 1.003 (1.001-1.035) Urine Protein Negative (Negative) Urine Glucose (UA) Negative (Negative) Urine Ketones Negative (Negative) Urine Blood Negative (Negative) Urine Nitrite Negative (Negative) Urine Bilirubin Negative (Negative) Urine Urobilinogen <2.0 (<2.0) mg/dL Ur Leukocyte Esterase Moderate H (Negative) Urine RBC <1 (0-5) /hpf Urine WBC 14 H (0-5) /hpf Ur Squamous Epith Cells 8 H (0-4) /hpf Urine Bacteria Moderate H (None) /hpf Urine HCG, Qual (Not Detectd) 09/20/22 09/20/22 Range/Units 15:33 16:05 WBC (3.8-10.6) k/uL RBC (3.80-5.40) m/uL Hgb (11.4-16.0) gm/dL Hct (34.0-46.0) % MCV (80.0-100.0) fL MCH (25.0-35.0) pg MCHC (31.0-37.0) g/dL RDW (11.5-15.5) % Plt Count (150-450) k/uL MPV Neutrophils % % Lymphocytes % % Monocytes % % Eosinophils % % Basophils % % Neutrophils # (1.3-7.7) k/uL Lymphocytes # (1.0-4.8) k/uL Monocytes # (0-1.0) k/uL Eosinophils # (0-0.7) k/uL Basophils # (0-0.2) k/uL Sodium (137-145) mmol/L Potassium (3.5-5.1) mmol/L Chloride (98-107) mmol/L Carbon Dioxide (22-30) mmol/L Anion Gap mmol/L BUN (7-17) mg/dL Creatinine (0.52-1.04) mg/dL Est GFR (CKD-EPI)AfAm (>60 ml/min/1.73 sqM) Est GFR (CKD-EPI)NonAf (>60 ml/min/1.73 sqM) Glucose (74-99) mg/dL Plasma Lactic Acid Lexx 1.3 (0.7-2.0) mmol/L Calcium (8.4-10.2) mg/dL Total Bilirubin (0.2-1.3) mg/dL AST (14-36) U/L ALT (4-34) U/L Alkaline Phosphatase (38-126) U/L Total Protein (6.3-8.2) g/dL Albumin (3.5-5.0) g/dL Urine Color Urine Appearance (Clear) Urine pH (5.0-8.0) Ur Specific [place] (1.001-1.035) Urine Protein (Negative) Urine Glucose (UA) (Negative) Urine Ketones (Negative) Urine Blood (Negative) Urine Nitrite (Negative) Urine Bilirubin (Negative) Urine Urobilinogen (<2.0) mg/dL Ur Leukocyte Esterase (Negative) Urine RBC (0-5) /hpf Urine WBC (0-5) /hpf Ur Squamous Epith Cells (0-4) /hpf Urine Bacteria (None) /hpf Urine HCG, Qual Not Detected (Not Detectd) Disposition Clinical Impression: Urinary tract infection Disposition: HOME SELF-CARE Condition: Stable Instructions (If sedation given, give patient instructions): Urinary Tract Infection in Women (ED) Additional Instructions: Reason return to the nearest emergency department if symptoms worsen or persist Prescriptions: Ciprofloxacin HCl [Cipro] 500 mg PO Q12HR #20 tablet Is patient prescribed a controlled substance at d/c from ED?: No Referrals: None,Stated [Primary Care Provider] - 1-2 days Time of Disposition: 18:45
[2022-09-20] MEDS ORDERED: KETOROLAC 15 MG/ML 1 ML VIAL IVP STA (16:35)
--- NOTE | 2022-09-20 18:06 | CT ---
EXAMINATION TYPE: CT abdomen pelvis wo con DATE OF EXAM: 09/20/2022 COMPARISON: 10/07/2017 INDICATION: flank pain DLP: 716.5 mGycm, Automated exposure control for dose reduction was used. CONTRAST: 0 mL of Isovue 300. Study performed without Oral Contrast TECHNIQUE: Axial images were obtained from above the diaphragm to the pubic rami in the axial plane a t 5 mm thick sections. Reconstructed images are reviewed on the computer in the coronal plane. FINDINGS: Limited CT sections are obtained the lung bases. The lung bases are clear. CT ABDOMEN: Liver: Normal Spleen: Normal Pancreas: Normal Adrenal glands: The adrenal glands are normal. Gallbladder: Surgically absent Kidneys: No masses are evident. No hydronephrosis is present. No cysts are present. No renal stone s are evident. Some subtle hydroureter may be present. No obstructing ureteral stones are evident how ever. No urinary bladder calcifications are evident. Aorta: Vascular calcification is within the aorta. Inferior vena cava: Normal. CT PELVIS: Loops of bowel within the abdomen and pelvis are normal. There are loops of bowel which are incom pletely distended or lack oral contrast limiting their evaluation. Appendix: Normal as visualized. Urinary bladder: Normal. Genitourinary structures: Uterus appears bulky. Adnexa are normal. No free fluid is pelvis. Osseous structures: No suspicious lytic or sclerotic lesions. IMPRESSIONS: 1. No renal or ureteral lithiasis evident. Some minimal prominence of the bilateral ureters may be p resent without an etiology for obstruction.
[2022-09-20] MEDS ORDERED: ONDANSETRON 4 MG ODT STARTER PACK 2 TAB BTL PO STA (18:53)
[2022-09-20] MEDS ORDERED: CIPROFLOXACIN HCL 500 MG TAB PO STA (18:54)
[2022-09-20] MEDS ORDERED: MORPHINE SULFATE 2 MG/ML SYRINGE IVP ONE (18:58)
[2022-09-20 19:24] VITALS: BP 128/89; PULSE 89; TEMP 98.5
== END 2022-09-20 19:24 | disposition home or self-care (01) ==
LOC: EC 13:22
DX: N39.0 Urinary tract infection, site not specified (principal); E11.9 Type 2 diabetes mellitus without complications; F41.9 Anxiety disorder, unspecified; F31.9 Bipolar disorder, unspecified; Z87.891 Personal history of nicotine dependence; Z88.2 Allergy status to sulfonamides; Z88.8 Allergy status to other drugs, medicaments and biological substances; Z79.4 Long term (current) use of insulin
CPT/HCPCS: 99284 ×2; 96374 ×2; 96375 ×3; 96361 ×4; 36415; 80053; 83605; 85025; 81001; 81025; 87040; 87086; 74176; J2405; J2270; J1885; S0119

== ENCOUNTER 2023-07-08 19:57 | Emergency (ER) | payer OTHER ==
--- NOTE | 2023-07-08 20:51 | ED ---
General Adult HPI - General Chief complaint: Wound/Laceration Stated complaint: Right index finger laceration Time Seen by Provider: 07/08/23 20:04 Source: patient Mode of arrival: ambulatory Limitations: no limitations - History of Present Illness Initial comments: 27-year-old female presenting to the ED status post laceration. 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 Reports that a rash came and and she was trying to open some canned tomatoes. Reports that and the rash accidentally cut her right index finger on the lid of the tomatoes. Reports that she is not sure what her tetanus status is and is primarily here for a tetanus shot. No other injuries at this time. No other complaints. - Related Data Home Medications Medication Instructions Recorded Confirmed Insulin Glargine,Hum.rec.anlog 4 units SQ HS 09/20/22 09/20/22 [Lantus Solostar Pen] Insulin Lispro [humaLOG Kwikpen] See Protocol SQ AC-TID 09/20/22 09/20/22 Previous Rx's Medication Instructions Recorded Ciprofloxacin HCl [Cipro] 500 mg PO Q12HR #20 tablet 09/20/22 Allergies Allergy/AdvReac Type Severity Reaction Status Date / Time sulfamethoxazole Allergy Rash/Hives Verified 07/08/23 20:00 [From Bactrim] trimethoprim [From Bactrim] Allergy Rash/Hives Verified 07/08/23 20:00 Review of Systems ROS Statement: Those systems with pertinent positive or pertinent negative responses have been documented in the HPI. ROS Other: All systems not noted in ROS Statement are negative. Past Medical History Past Medical History: Diabetes Mellitus Additional Past Medical History / Comment(s): KIDNEY STONES, history of gestational diabetes with her last , Type 2 diabetes, polycystic ovarian syndrome History of Any Multi-Drug Resistant Organisms: MRSA Date of last positivie culture/infection: 2012 MDRO Source:: BUTTOCK/BREAST Past Surgical History: Cholecystectomy, Hernia Repair Additional Past Surgical History / Comment(s): Left inguinal hernia repair, Past Anesthesia/Blood Transfusion Reactions: No Reported Reaction Past Psychological History: ADD/ADHD, Anxiety, Bipolar, Depression Smoking Status: Former smoker Past Alcohol Use History: Rare Past Drug Use History: None Reported - Past Family History Mother Family Medical History: No Reported History Additional Family Medical History / Comment(s): Mother is alive at age 41 with no major medical problems. Patient has 2 half-brothers and one half-sister with no major medical problems. Father Family Medical History: No Reported History Additional Family Medical History / Comment(s): Father is alive at age 46 with history of celiac disease General Exam Limitations: no limitations General appearance: alert, in no apparent distress Eye exam: Present: normal appearance Neck exam: Present: normal inspection Respiratory exam: Present: normal lung sounds bilaterally Cardiovascular Exam: Present: regular rate, normal rhythm GI/Abdominal exam: Present: soft Extremities exam: Present: other (Superficial laceration to the palmar aspect of her right second finger distal to the DIP joint.) Neurological exam: Present: alert, oriented X3 Skin exam: Present: warm, dry Course Vital Signs 07/08/23 19:58 Temperature 97.9 F Pulse Rate 74 Respiratory 18 Rate Blood Pressure 133/86 O2 Sat by Pulse 100 Oximetry Medical Decision Making - Medical Decision Making Was pt. sent in by a medical professional or institution (, PA, BIT SHARPENER, urgent care, hospital, or fpc...) When possible be specific @ -No Did you speak to anyone other than the patient for history (EMS, parent, family, police, friend...)? What history was obtained from this source @ -No Did you review nursing and triage notes (agree or disagree)? Why? @ -I reviewed and agree with nursing and triage notes Were old charts reviewed (outside hosp., previous admission, EMS record, old EKG, old radiological studies, urgent care reports/EKG's, fpc records)? Report findings @ -No old charts were reviewed Differential Diagnosis (chest pain, altered mental status, abdominal pain women, abdominal pain men, vaginal bleeding, weakness, fever, dyspnea, syncope, headache, dizziness, GI bleed, back pain, seizure, CVA, palpatations, mental health, musculoskeletal)? @ -Differential Musculoskeletal Muscular strain, contusion, ligament sprain, fracture, arthritis, septic arthritis, bursitis, cellulitis, muscle spasm, nerve compression, DVT, arterial occlusion, herpes zoster, electrolyte abnormality, tumor.... This is not meant to be in all inclusive list EKG interpreted by me (3pts min.). @ -None X-rays interpreted by me (1pt min.). @ -None done CT interpreted by me (1pt min.). @ -None done U/S interpreted by me (1pt. min.). @ -None done What testing was considered but not performed or refused? (CT, X-rays, U/S, labs)? Why? @ -None What meds were considered but not given or refused? Why? @ -None Did you discuss the management of the patient with other professionals (professionals i.e. , PA, BIT SHARPENER, lab, RT, psych nurse, social work assistant, archivist political history, teacher, medical information officer, manager case)? Give summary @ -No Was smoking cessation discussed for >3mins.? @ -No Was critical care preformed (if so, how long)? @ -No Were there social determinants of health that impacted care today? How? (Homelessness, low income, unemployed, alcoholism, drug addiction, transport ation, low edu. Level, literacy, decrease access to med. care, fpc, rehab)? @ -No Was there de-escalation of care discussed even if they declined (Discuss DNR or withdrawal of care, Hospice)? DNR status @ -No What co-morbidities impacted this encounter? (DM, HTN, Smoking, COPD, CAD, Cancer, CVA, ARF, Chemo, Hep., AIDS, mental health diagnosis, sleep apnea, morbid obesity)? @ -None Was patient admitted / discharged? Hospital course, mention meds given and route, prescriptions, significant lab abnormalities, going to OR and other pertinent info. @ -Discharge 27-year-old female presenting to the ED with complaints of laceration to right second finger after rushing to opening a tomato can. Reports she is primarily here to get her tetanus updated. On examination superficial laceration of her index finger which does not appear to benefit from primary closure. Advised local wound care consistent cleaning of the wound. Tetanus updated here and applied bacitracin. Discharged home in stable condition. Discussed return precautions with patient who verbalized agreement. Undiagnosed new problem with uncertain prognosis? @ -No Drug Therapy requiring intensive monitoring for toxicity (Heparin, Nitro, Insulin, Cardizem)? @ -No Were any procedures done? @ -No Diagnosis/symptom? @ -Laceration, right second finger Acute, or Chronic, or Acute on Chronic? @ -Acute Uncomplicated (without systemic symptoms) or Complicated (systemic symptoms)? @ -Uncomplicated Side effects of treatment? @ -No Exacerbation, Progression, or Severe Exacerbation? @ -No Poses a threat to life or bodily function? How? (Chest pain, [place], [place], pneumonia, PE, COPD, DKA, ARF, appy, cholecystitis, CVA, Diverticulitis, Homicidal, Suicidal, threat to staff... and all critical care pts) @ -No Disposition Clinical Impression: Laceration Disposition: HOME SELF-CARE Condition: Good Instructions (If sedation given, give patient instructions): Laceration (ED), Acute Wounds (ED) Additional Instructions: Please return to the Emergency Department if symptoms worsen or any other concerns. Is patient prescribed a controlled substance at d/c from ED?: No Referrals: Jose Sheikh MD [Primary Care Provider] - 1-2 days Time of Disposition: 21:40
[2023-07-08] MEDS: BACITRACIN OINT 1 EACH PACKET TOPICAL ONE (20:58)
[2023-07-08] MEDS: DIPH,PERTUS(ACELL)TETVAC-LF 0.5 ML VIAL IM ONE (21:46)
[2023-07-08 22:22] VITALS: BP 126/85; PULSE 78; RESP 16; TEMP 98.7
== END 2023-07-08 21:50 | disposition home or self-care (01) ==
LOC: EC 19:57
DX: S61.210A Laceration without foreign body of right index finger without damage to nail, initial encounter (principal); Z88.2 Allergy status to sulfonamides; Z88.1 Allergy status to other antibiotic agents; Z87.891 Personal history of nicotine dependence; Z23 Encounter for immunization; W45.8XXA Other foreign body or object entering through skin, initial encounter
CPT/HCPCS: 12001; 90471; 90715; 99282

== ENCOUNTER 2024-06-07 20:34 | Emergency (ER) | payer OTHER ==
[2024-06-07 20:47] VITALS: TEMP 97.9
--- NOTE | 2024-06-07 20:59 | ED ---
Wound/Laceration HPI - General Chief Complaint: Burn/Smoke Inhalation Stated Complaint: L Hand Injury Time Seen by Provider: 06/07/24 20:49 Source: patient, RN notes reviewed Mode of arrival: ambulatory Limitations: no limitations - History of Present Illness Initial Comments: This is a 28-year-old female who presents to the emergency department for a burn to her left hand. States that she burned it on a heating pad last night and has had blistering in 2 spots to her left palm. She started to notice that the blisters are leaking fluid as well. This is also moderately painful. Tetanus vaccine is up-to-date. States that she is concerned about it becoming infected. - Related Data Home Medications Medication Instructions Recorded Confirmed Insulin Glargine,Hum.rec.anlog 4 units SQ HS 09/20/22 09/20/22 [Lantus Solostar Pen] Insulin Lispro [humaLOG Kwikpen] See Protocol SQ AC-TID 09/20/22 09/20/22 Previous Rx's Medication Instructions Recorded Ciprofloxacin HCl [Cipro] 500 mg PO Q12HR #20 tablet 09/20/22 Bacitracin Zinc Oint 1 applic TOPICAL BID 7 Days #28 gm 06/07/24 Cephalexin [Keflex] 500 mg PO Q6HR 7 Days #28 cap 06/07/24 Ketorolac [Toradol] 10 mg PO Q6HR PRN #15 tab 06/07/24 Allergies Allergy/AdvReac Type Severity Reaction Status Date / Time sulfamethoxazole Allergy Rash/Hives Verified 06/07/24 20:47 [From Bactrim] trimethoprim [From Bactrim] Allergy Rash/Hives Verified 06/07/24 20:47 Review of Systems ROS Statement: Those systems with pertinent positive or pertinent negative responses have been documented in the HPI. ROS Other: All systems not noted in ROS Statement are negative. Past Medical History Past Medical History: Diabetes Mellitus Additional Past Medical History / Comment(s): KIDNEY STONES, history of gestational diabetes with her last , Type 2 diabetes, polycystic ovarian syndrome History of Any Multi-Drug Resistant Organisms: MRSA Date of last positivie culture/infection: 2012 MDRO Source:: BUTTOCK/BREAST Past Surgical History: Cholecystectomy, Hernia Repair Additional Past Surgical History / Comment(s): Left inguinal hernia repair, Past Anesthesia/Blood Transfusion Reactions: No Reported Reaction Past Psychological History: ADD/ADHD, Anxiety, Bipolar, Depression Smoking Status: Former smoker Past Alcohol Use History: Rare Past Drug Use History: None Reported - Past Family History Mother Family Medical History: No Reported History Additional Family Medical History / Comment(s): Mother is alive at age 41 with no major medical problems. Patient has 2 half-brothers and one half-sister with no major medical problems. Father Family Medical History: No Reported History Additional Family Medical History / Comment(s): Father is alive at age 46 with history of celiac disease General Exam Limitations: no limitations General appearance: alert, in no apparent distress Respiratory exam: Present: normal lung sounds bilaterally. Absent: respiratory distress, wheezes, rales, rhonchi, stridor Cardiovascular Exam: Present: regular rate, normal rhythm, normal heart sounds. Absent: systolic murmur, diastolic murmur, rubs, gallop, clicks Extremities exam: Present: other (2 small superficial partial-thickness devi to the palmar aspect of the left hand) Neurological exam: Present: alert, oriented X3, CN II-XII intact Psychiatric exam: Present: normal affect, normal mood Course Vital Signs 06/07/24 06/07/24 20:42 21:35 Temperature 97.9 F Pulse Rate 82 78 Respiratory 20 18 Rate Blood Pressure 135/95 126/80 O2 Sat by Pulse 100 99 Oximetry Medical Decision Making - Medical Decision Making This is a 28-year-old female who presents to the emergency department for devi to the left hand. Was pt. sent in by a medical professional or institution? @ -No Did you speak to anyone other than the patient for history? @ -No Did you review nursing and triage notes? @ -Yes, and I agree, it is accurate with regards to the patient's symptoms. Were old charts reviewed? @ -No Differential Diagnosis? @ -Burn, abrasion, cellulitis, this is not meant to be an all-inclusive list. EKG interpreted by me (3pts min.)? @ -Not obtained X-rays interpreted by me (1pt min.)? @ -Not obtained CT interpreted by me (1pt min.)? @ -Not obtained U/S interpreted by me (1pt. min.)? @ -Not obtained What testing was considered but not performed? (CT, X-rays, U/S, labs)? Why? @ -None What meds were considered but not given? Why? @ -None Did you discuss the management of the patient with other professionals? @ -No Did you reconcile home meds? @ -No Was smoking cessation discussed for >3mins.? @ -No Was critical care preformed (if so, how long)? @ -No Were there social determinants of health that impacted care today? How? (Homelessness, low income, unemployed, alcoholism, drug addiction, transportation, low edu. Level, literacy, decrease access to med. care, penitentiary, rehab)? @ -No Was there de-escalation of care discussed even if they declined? (Discuss DNR or withdrawal of care, Hospice)? @ -No What co-morbidities impacted this encounter? (DM, HTN, Smoking, COPD, CAD, Cancer, CVA, Hep., AIDS, mental health diagnosis, sleep apnea, morbid obesity)? @ -None Was patient admitted / discharged? @ -Discharged. On exam she had 2 fairly small superficial partial-thickness wounds to the left hand. Bacitracin ointment was applied and the wounds were bandaged. Patient was very concerned about any possible infection and advised that she noticed drainage from this. Advised that it is likely not infected at this point, however Keflex was prescribed for infectious prophylaxis along with bacitracin ointment. Advised she continue to clean and rebandage the wound with the bacitracin ointment. Toradol prescribed for pain control. Patient disc harged home in stable condition. Case discussed with ED attending Dr. Ramirez. Undiagnosed new problem with uncertain prognosis? @ -None Drug Therapy requiring intensive monitoring for toxicity (Heparin, Nitro, Insulin, Cardizem)? @ -None Were any procedures done? @ -None Diagnosis/symptom? @ -Burn to left hand Acute, or Chronic, or Acute on Chronic? @ -Acute Uncomplicated (without systemic symptoms) or Complicated (systemic symptoms)? @ -Uncomplicated Side effects of treatment? @ -None Exacerbation, Progression, or Severe Exacerbation] @ -Not applicable Poses a threat to life or bodily function? @ -No Disposition Clinical Impression: Burn of left hand Disposition: HOME SELF-CARE Instructions (If sedation given, give patient instructions): Topical Anesthetic (On the skin), Second-Degree Burn (ED) Additional Instructions: Return to the emergency department with any new, worsening, or concerning symptoms. Take the antibiotic as prescribed for 7 days. Apply the antibiotic ointment twice daily or whenever you change the bandages. Take the Toradol with Tylenol as needed for pain relief. If you choose to take the Toradol, do not take any other anti-inflammatories such as ibuprofen, take one or the other. You can also apply [id number] topical medication for devi to help numb the area. Follow up with your primary care provider in 1-2 days. Prescriptions: RX: Bacitracin Zinc Oint 1 applic TOPICAL BID 7 Days #28 gm Cephalexin [Keflex] 500 mg PO Q6HR 7 Days #28 cap Ketorolac [Toradol] 10 mg PO Q6HR PRN #15 tab PRN Reason: Pain Is patient prescribed a controlled substance at d/c from ED?: No Referrals: Aracelis Miller MD [Primary Care Provider] - 1-2 days Time of Disposition: 20:59
[2024-06-07] MEDS: HYDROcodone/APAP 7.5-325MG 1 EACH TAB PO ONE (21:19)
[2024-06-07] MEDS: CEPHALEXIN 500 MG CAP PO STA (21:20)
[2024-06-07] MEDS: KETOROLAC 15 MG/ML 1 ML VIAL IM STA (21:21)
[2024-06-07] MEDS: BACITRACIN OINT 1 EACH PACKET TOPICAL ONE (21:23)
[2024-06-07] MEDS: traMADol 50 MG STARTER PACK 3 TAB BTL PO STA (21:23)
[2024-06-07 22:24] VITALS: BP 126/80; PULSE 78; RESP 18
== END 2024-06-07 21:40 | disposition home or self-care (01) ==
LOC: EC 20:34
DX: T23.202A Burn of second degree of left hand, unspecified site, initial encounter (principal); T31.0 Burns involving less than 10% of body surface; Z87.891 Personal history of nicotine dependence; Z88.2 Allergy status to sulfonamides; Z88.1 Allergy status to other antibiotic agents; X19.XXXA Contact with other heat and hot substances, initial encounter
CPT/HCPCS: 99283; 16020; 96372; J1885